=== PATIENT | male | born 1950 | race Caucasian/White ===

== ENCOUNTER → 2017-02-24 | Outpatient (CLI) | payer OTHER, MEDICARE ==
[~2017-02-24] VITALS: Ht 180.3 cm; Wt 104.0 kg
[~2017-02-24] MED LIST: ALBUAER INH; ASPI81TA28 PO; ATOR-26 PO; DVN/160 PO; ESOM20CA PO; HYDR12.55 PO; LOSA100T2 PO; METF1TAB85 PO; METO25TA56 PO; MONT1TAB3 PO; MULTTAB58 PO; NITR0.4S UT; OMEGCAP2 PO; SYMIN160 INH; [UNRECOGNIZED DRUG - CODE] PO
[2017-02-24 16:05] VITALS: BP 135/81; PULSE 89; Ht 180.3 cm; Wt 104.0 kg
== END | disposition home or self-care (01) ==
LOC: C.NEUR 13:10
PROVIDERS: ATTEND Physician Assistant
DX: G47.33 Obstructive sleep apnea (adult) (pediatric) (principal)

== ENCOUNTER → 2017-03-21 | Day surgery (SDC) | payer OTHER, MEDICARE ==
[~2017-03-21] VITALS: Ht 180.3 cm; Wt 104.4 kg
[~2017-03-21] MED LIST changes: +ACETAMINOPHEN 325 MG TAB PO PRN; +BACITRACIN OINT 0.9 GM PKT ONE; +FENTANYL CITRATE INJ 50 MCG/1 ML 2 ML VIAL ONE; +LIDOCAINE HCL 1% 20 ML VIAL ONE; +MIDAZOLAM HCL 1 MG/ML 2ML VIAL ONE
[2017-03-21 12:29] VITALS: BP 117/73; PULSE 67; TEMP 36.9; O2SAT 95; Ht 180.3 cm; Wt 104.4 kg
--- NOTE | 2017-03-21 13:35 | History & Physical Bridge Note ---
H&P Re-Evaluation Bridge Note: I have examined the patient, reviewed the History & Physical and in the interval since the performance of the History & Physical I have noted the following changes of clinical significance: No changes noted. I reviewed the indications, procedure, risks and alternatives with him and his and they understand and he agrees to proceed.
--- NOTE | 2017-03-21 14:11 | Cardiology Procedure Brief Nt ---
Preliminary Cardiology Note Procedure Date March 21, 2017. Pre-Procedure Diagnosis Loop recorder end of service Post-Procedure Diagnosis same Procedure(s) Performed Loop recorder explantation Project Manager [employer] Dr. Morris Prosthetic Dentist(s) none Estimated Blood Loss 5 cc Preliminary Findings Successful explantation Recommendations Monitor briefly and discharge Specimens Old loop recorder, return to [employer] Anesthesia local without sedation Complication(s) None Disposition MTU
[2017-03-21 14:20] VITALS: BP 124/74; PULSE 69; TEMP 36.5; O2SAT 96
--- NOTE | 2017-03-21 14:44 | Discharge Instructions ---
Discharge Instructions Date of Service March 21, 2017. Admission Loop end of service Discharge Discharge Diagnosis / Problem: Loop recorder explantation Discharge Goals Goal(s): Therapeutic intervention Activity Recommendations Activity Limitations: resume your previous activity . Instructions / Follow-Up Instructions / Follow-Up ACTIVITY RECOMMENDATIONS: * Do not raise affected arm over head for 2 weeks. SPECIAL CARE INSTRUCTIONS: * If bleeding occurs, apply direct pressure to area for 5 minutes. * Call your doctor if you have severe pain, fever, drainage or bleeding at site. * Keep dressing on and dry. * Keep any scheduled doctor's appointment. FOLLOW UP VISIT: Dr. Morris Monday03/22/2017 10:00 AM Current Hospital Diet Patient's current hospital diet: Discharge Diet Recommended Diet: AHA Diet (Heart Healthy) Pending Studies Studies pending at discharge: no Medical Emergencies . Who to Call and When: Medical Emergencies: If at any time you feel your situation is an emergency, please call 911 immediately. . Non-Emergent Contact Non-Emergency issues call your: Primary Care Provider . . "Provider Documentation" section prepared by James Morris. . VTE Core Measure Inpt VTE Proph given/why not?: Treatment not indicated
[2017-03-21 14:50] VITALS: BP 136/82; PULSE 65; O2SAT 95
--- NOTE | 2017-04-13 16:08 | OPERATIVE REPORT ---
DATE OF OPERATION: 03/21/2017 AMBULATORY OPERATIVE NOTE PREOPERATIVE DIAGNOSIS: Loop recorder end of service. POSTOPERATIVE DIAGNOSIS: Same. PROCEDURE: Loop recorder explantation. SURGEON: James Morris MD ANESTHESIA: Local without sedation. HISTORY: This is a 67-year-old male who has a history of syncope, for which he had a loop recorder implanted. A number of episodes of syncope have been identified and no arrhythmia was identified. It therefore appears that his syncope is not due to an arrhythmia. His loop recorder was left in place until it reached end of service and he is now brought in for device removal. Since he does not seem to have a clinically significant arrhythmia, no new device will be implanted. DESCRIPTION OF PROCEDURE: After obtaining informed consent for the procedure, he was brought to the laboratory on the afternoon of 03/21/2017 being n.p.o. after midnight. He was identified in the laboratory, prepped and draped in standard sterile manner for a left-sided loop recorder explantation. Left precordial loop recorder implant site was anesthetized with 1% lidocaine local anesthetic, a 2-cm incision was made through the old implant site and the loop recorder was explanted. The incision was closed with a subcutaneous closure of 3-0 Vicryl followed by a running subcuticular skin closure of 4-0 Vicryl. Bacitracin ointment was placed on incision and a pressure dressing applied. The patient tolerated the procedure well, there were no complications and estimated blood loss was 5 mL. The patient will be observed briefly and then discharged. [facility]ITAL[facility] David
== END | disposition home or self-care (01) ==
LOC: C.ACU 11:16
PROVIDERS: ATTEND Internal Medicine Cardiovascular Disease
DX: Z45.89 Encounter for adjustment and management of other implanted devices (principal); R55 Syncope and collapse; I25.10 Atherosclerotic heart disease of native coronary artery without angina pectoris; E11.42 Type 2 diabetes mellitus with diabetic polyneuropathy; K21.9 Gastro-esophageal reflux disease without esophagitis; E78.5 Hyperlipidemia, unspecified; I10 Essential (primary) hypertension; G47.33 Obstructive sleep apnea (adult) (pediatric); Z87.09 Personal history of other diseases of the respiratory system; Z95.1 Presence of aortocoronary bypass graft; Z80.0 Family history of malignant neoplasm of digestive organs; Z79.82 Long term (current) use of aspirin; Z79.899 Other long term (current) drug therapy

== ENCOUNTER → 2017-05-08 | Outpatient (CLI) | payer OTHER, MEDICARE ==
[~2017-05-08] MED LIST changes: -ACETAMINOPHEN 325 MG TAB PO PRN; -BACITRACIN OINT 0.9 GM PKT ONE; -DVN/160 PO; -ESOM20CA PO; -FENTANYL CITRATE INJ 50 MCG/1 ML 2 ML VIAL ONE; -HYDR12.55 PO; -LIDOCAINE HCL 1% 20 ML VIAL ONE; -MIDAZOLAM HCL 1 MG/ML 2ML VIAL ONE; -MONT1TAB3 PO; -MULTTAB58 PO; -OMEGCAP2 PO; -[UNRECOGNIZED DRUG - CODE] PO
--- NOTE | 2017-05-15 12:44 | EEG Procedure Note ---
EEG Procedure Note Date of Service May 08, 2017. Start / End Times Start Time: 05/08/2017 at 1:50 PM End Time: 05/09/2017 at 12:18 PM Referring Physician Neymar Bowser History This is a 67-year-old male with episodes of altered awareness and syncope in relationship to coughing. Ambulatory EEG for spell capture and further evaluation of possible seizure etiology. Home Medication List Scheduled Aspirin (Aspirin Ec), 81 MG PO DAILY Atorvastatin (Lipitor), 80 MG PO DAILY Budesonide/Formoterol Fumarate (Symbicort 160/4.5 Inhaler), 2 PUFFS INH BID Losartan Potassium & Hydrochlo (Hyzaar), 1 TAB PO DAILY Metformin Hcl (Metformin Hcl Er), 1 TAB PO BID Metoprolol Tartrate (Lopressor) (Lopressor), 12.5 MG PO BID Nitroglycerin (Nitrostat), 0.4 MG UT PRN Scheduled PRN Albuterol (Proventil Hfa), 2 PUFFS INH Description This is a 21 electrode EEG with a single channel dedicated to limited EKG. The electrodes were placed in accordance with the International 10-20 system. The recording was of good quality. There was T6 disconnection electrode artifact after 11 AM on May 09. At the start of the recording the patient was in an awake state. Background was well organized and composed of symmetric mixed alpha and beta frequencies. There was a symmetric well-formed moderate amplitude 9-10 Hz posterior dominant rhythm that was reactive to eye opening and closure. Sleep was indicated by symmetric sleep spindles and slow wave sleep. Patient journal was returned and reviewed. There was 2 clinical events of reported coughing on May 09 at 8:20 AM and 11: 55 AM. EEG was carefully reviewed before and after reported time. There was intermittent movement artifact, but otherwise no change to normal awake EEG background. There was no electrographic seizures or epileptiform discharges. Interpretation This is a normal 24hr ambulatory EEG. There was no electrographic seizures or epileptiform discharges. Clinical Correlation A normal EEG does not rule out epilepsy if there is a strong clinical suspicion or for event types not captured. 2 clinical events of coughing did not have any EEG correlation.
== END | disposition home or self-care (01) ==
LOC: C.NEUR 13:20
PROVIDERS: ATTEND Psychiatry & Neurology Neurology
DX: G62.9 Polyneuropathy, unspecified (principal); R55 Syncope and collapse

== ENCOUNTER → 2018-02-22 | Outpatient (CLI) | payer OTHER, MEDICARE ==
[~2018-02-22] MED LIST changes: +GADAVIST IV PRN
--- NOTE | 2018-02-22 14:30 | DIAGNOSTIC IMAGING REPORT ---
MRI OF THE BRAIN COMBO CLINICAL HISTORY: Strokelike symptoms. COMPARISON STUDY: MRI of the brain dated 03/17/2014. TECHNIQUE: MRI of the brain was performed utilizing various T1 and T2-weighted sequences in the axial, sagittal, and coronal planes. Contrast-enhanced sequences were acquired following the administration of 10.2 cc of Gadavist. The examination is performed using the seizure protocol. FINDINGS: Brain parenchyma: There is minimal subcortical and periventricular microangiopathic disease. There is no hemorrhage or mass effect. There is no restricted diffusion to suggest acute ischemia. No enhancing mass lesion is identified on the postcontrast images. Damico-white matter differentiation is preserved. No extra-axial fluid collection is seen. The cerebellar tonsils are normal in configuration. Ventricles, sulci, and cisterns: Normal in configuration. Pituitary and sella: Unremarkable. Intracranial vasculature: Normal flow voids are maintained at the skull base. Orbits: The bony orbits are grossly intact. Orbital contents are normal in appearance. Sinuses and mastoids: There is trace mucosal thickening in the maxillary antra as well as trace air-fluid levels. The remaining paranasal sinuses are clear. The mastoid air cells are well pneumatized. Calvarium: Unremarkable. Cervical cord: Partially visualized cervical spinal cord is normal in morphology and signal intensity. IMPRESSION: No acute intracranial abnormality. Electronically signed by: Jeremiah Patterson M.D. 02/22/2018 2:29 PM Dictated Date/Time: 02/22/2018 2:24 PM
== END | disposition home or self-care (01) ==
LOC: C.MRIBC 13:22
PROVIDERS: ATTEND Psychiatry & Neurology Neurology
DX: R29.90 Unspecified symptoms and signs involving the nervous system (principal)

== ENCOUNTER 2022-03-01 11:41 | Inpatient (IN) ==
[2022-03-01] MEDS ORDERED: SODIUM CHLORIDE 0.9% 500 ML IV ONE (12:26)
[2022-03-01 12:43] LABS: Basophils # (auto) 0.02 K/uL (0-0.2); Basophils % (auto) 0.2 %; Eosinophils # (auto) 0.06 K/uL (0-0.5); Eosinophils % (auto) 0.6 %; Hematocrit (blood only) 41.6 % (42-52); Hemoglobin 13.9 g/dL (14.0-18.0); Immature Granulocytes # (auto) 0.03 K/uL (0.00-0.02); Immature Granulocytes % (auto) 0.3 %; Lymphocytes # (auto) 1.87 K/uL (1.2-3.4); Lymphocytes % (auto) 19.8 %; Mean Corpuscular Hemoglobin 29.3 pg (25-34); Mean Corpuscular Hgb Conc 33.4 g/dL (32-36); Mean Corpuscular Volume 87.8 fL (80-100); Mean Platelet Volume 10.2 fL (7.4-10.4); Monocytes # (auto) 0.99 K/uL (0.11-0.59); Monocytes % (auto) 10.5 %; Neutrophils # (auto) 6.47 K/uL (1.4-6.5); Neutrophils % (auto) 68.6 %; Platelet Count 236 K/uL (130-400); RDW Coefficient of Variation 15.2 % (11.5-14.5); RDW Standard Deviation 48.6 fL (36.4-46.3); Red Blood Count 4.74 M/uL (4.7-6.1); White Blood Count 9.44 K/uL (4.8-10.8)
--- NOTE | 2022-03-01 13:05 | XRay Report ---
XR chest 1V portable HISTORY: 71 years-old Male Chest Pain . Acute atypical chest pain COMPARISON: None TECHNIQUE: Portable AP view of the chest FINDINGS: The cardiac silhouette is enlarged. Mitral annular calcifications. Prior median sternotomy with surgi kaur clips suggestive of CABG. Several of the sternotomy wires are fractured and malaligned. No pneumo thorax. Trace pleural effusions with mild left basilar predominant opacities. Pulmonary vascular wild estion. Degenerative changes of the shoulders and spine. Left subclavian [id number] catheter dista l tip projects over the expected location of the mid SVC. IMPRESSION: 1. Cardiomegaly with pulmonary vascular congestion. 2. Trace pleural effusions with mild left lung base opacities suggestive of atelectasis versus pneumo nitis. 3. Prior median sternotomy. Several sternotomy wires are fractured and malaligned. Chronicity is unkn own without comparison. Correlate clinically to exclude sternal dehiscence. ACT 112: Negative or not required by law. The above report was generated using voice recognition software. It may contain grammatical, syntax o r spelling errors. Electronically signed by: Julio Lim M.D. 03/01/2022 1:04 PM
[2022-03-01 13:07] LABS: Albumin Level 3.9 gm/dl (3.4-5.0); BUN Creatinine Ratio 25.5 (10-20); Bilirubin,Total 0.3 mg/dl (0.2-1.0); Calcium 9.3 mg/dl (8.5-10.1); Creatinine Clr Calc Pharmacy 78.7 ml/min; Est GFR (African American) 80.9 ml/min; Est GFR (Non-African American) 69.8 ml/min; Magnesium 1.8 mg/dl (1.7-2.4); Phosphorus 2.9 mg/dl (2.5-4.9); Potassium 4.1 mmol/L (3.5-5.1); Total Protein 7.9 gm/dl (6.0-8.3)
[2022-03-01 13:14] LABS: Troponin I High Sensitivity 71.7 pg/ml (0-20)
[2022-03-01] MEDS ORDERED: ACETAMINOPHEN 1,000 MG/100 ML VIAL IV STA (13:33)
[2022-03-01] MEDS ORDERED: ASPIRIN CHEW 324 MG PO STA (16:46)
--- NOTE | 2022-03-01 17:24 | History & Physical Report ---
Date of Service March 01, 2022 Assessment & Plan (1) Unstable angina: Plan: I am concerned that his symptoms in the last 24 hours are indeed due to cardiac ischemia. His symptomatology is unlikely to be from side effects from IVIG. At minimum his history is concerning for unstable angina - I cannot rule out early NSTEMI. He is 20+ years out from his CABG and had a positive nuclear stress test on 09/14/2021 per records. This showed a small, mild area of ischemia involving the base to mid inferior/inferoseptal territory. EF was 60%. Normal wall motion. Fortunately all symptoms have resolved by the time of my admission assessment, he is hemodynamically stable, and EKG does not show acute changes. Plan * admit to telemetry * consult [facility], Dr Archibald; I discussed Mr Willams's care with Dr Archibald and we will heparinize tonight and keep NPO after MN for potential heart cath in am * heparin drip, low-dose * continue asa * cont statin; check lipids in am * trend HS troponins * continue metoprolol * continue losartan * continue imdur * EKG in am and prn * Echocardiogram in am (2) Elevated troponin: Plan: see #1 above trend the troponins NPO after MN tonight for potential heart cath in am EKG in am (3) CAD, multiple vessel: Plan: 4-vessel CABG in 1997 - [facility]. had positive/abnl nuclear stress test in 08/2021 as above. cont asa, beta reese, statin, imdur, nitro SL prn, ARB. lipids in am. (4) Night sweats: Plan: several months in duration. no weight loss. will obtain 2 sets of blood cultures with 1 set from port. check sed rate/crp. repeat his cxr in am due to infiltrates in the left lung. if nothing is revealing while here he needs close outpatient f/u with his PCP. last TSH in 2019 was wnl. (5) Insomnia: Plan: consider dedicated medication for this. his sleep is very poor, often obtaining <5 hours each night. he attributes some of the insomnia to the night-sweats. (6) CIDP (chronic inflammatory demyelinating polyneuropathy): Plan: follows with Neurology at [facility] in [place]. IVIG q3 weeks for such. IVIG has been utilized for about 2 years. last infusion - 02/28/22. (7) Hyperlipidemia: Plan: check lipids in am. check a1c and TSH. statin. (8) Hypertension: Plan: cont ARB, metoprolol, imdur, HCTZ. adjust meds as needed. (9) Obstructive sleep apnea: Plan: need to inquire if using CPAP or BIPAP at home. if untreated this is likely contributing to chronic insomnia. (10) PAD (peripheral artery disease): Plan: arterial duplex studies with mild-moderate PAD of legs but normal ABIs. night-time leg cramps, however, unlikely to be from PAD. he denies claudication of legs with activity. (11) Seizure-like activity: Plan: history of focal & generalized seizures in the past. cont lamictal. follows with neurology in [place]. (12) Type 2 diabetes mellitus: Plan: check a1c in am. BSGs ac/hs. Novolog sliding scale. add basal insulin as needed. hold metformin. (13) Abnormal CXR: Plan: ?left sided infiltrates on pCXR today. repeat a 2-view cxr in am. if cxr continues to be abnormal consider chest CT in light of night-sweats, etc. (14) DVT prophylaxis: Plan: heparin drip low-dose Plan: extensively updated at bedside today w/ plan of care History of Present Illness Chief Complaint: L shoulder pain, dyspnea, diaphoresis Primary Care Provider: Arsh Gupta 71yo male with CAD s/p 4-vessel CABG in [facility] in 1997, T2DM, chronic inflammatory demyelinating polyneuropathy (CIPD), PAD, HTN, and hyperlipidemia who presents from home with his due to 2 episodes of feeling very poorly in the last 24 hours. Patient states that he receives IVIG every 3 weeks in [place] for his CIDP (managed by a neurologist at [facility]) and typically has leg cramps during the infusion. Following the infusion he sometimes has facial flushing, insomnia, and a generalized unwellness. However, last evening he had symptoms very atypical for his IVIG. Specifically, for at least 2 to 2.5 hours in the early hours of this AM, he had diaphoresis, shortness of breath, left shoulder pain, and nausea. The symptoms ultimately improved enough that he did fall asleep for several hours. Upon awakening this am he had another episode of left shoulder pain, dyspnea, and diaphoresis. This 2nd episode lasted for about 3-4 hours. He never had chest pain with either episode. Patient distinctly remembers that in the time period leading up to his CABG he had had left arm pain. The pain in the left shoulder last pm was somewhat similar to the left arm pains he had in the late pre-CABG. He wanted to blame much of the symptoms last night to his IVIG infusion but he readily admits that last night's symptoms were not typical. In addition, he complaints of significant fatigue for weeks to months. Several times during the visit he complained of drenching night-sweats and flushing - present for months. The sweats prevent him from sleeping well. Denies any change in appetite. Denies any weight loss. Denies chronic fevers or rigors. Pt states he had an A-port placed about 6 weeks ago in [place]. Allergies Allergy/AdvReac Type Severity Reaction Status Date / Time adhesive Allergy Intermediate red, Verified 03/01/22 12:43 inflammed No Known Drug Allergies Allergy NKDA Verified 03/01/22 12:43 Home Medications Medication Instructions Recorded Confirmed Type aspirin 81 mg tablet 81 mg PO QPM tab 07/24/19 03/01/22 History metformin 500 mg tablet,extended 500 mg PO BID #60 tab 07/24/19 03/01/22 History release 24 hr nitroglycerin 0.4 mg sublingual 0.4 mg SL Q5M PRN #25 tab 07/24/19 03/01/22 History tablet albuterol sulfate 90 mcg/actuation 1 - 2 puff INHALATION QID PRN g 08/23/21 03/01/22 History aerosol inhaler duloxetine 30 mg capsule,delayed 30 mg PO DAILY 08/23/21 03/01/22 History release magnesium oxide 400 mg PO QPM 08/23/21 03/01/22 History isosorbide mononitrate 30 mg 30 mg PO DAILY #30 tab 09/18/21 03/01/22 Rx tablet,extended release 24 hr cholecalciferol (vitamin D3) 125 125 mcg PO DAILY 10/06/21 03/01/22 History mcg (5,000 unit) capsule losartan 100 mg tablet 100 mg PO DAILY 10/06/21 03/01/22 History metoprolol tartrate 25 mg tablet 12.5 mg PO BID #90 tab 02/07/22 03/01/22 Rx atorvastatin 80 mg tablet 80 mg PO QPM #90 tab 02/25/22 03/01/22 Rx Ivig 1 dose IV .Q3WKS 03/01/22 03/01/22 History Potassium Otc 1 tab PO DAILY 03/01/22 03/01/22 History folic acid-vit B6-vit B12 2.5 1 tab PO DAILY 03/01/22 03/01/22 History mg-25 mg-2 mg tablet (Folbic) hydrochlorothiazide 25 mg tablet 12.5 mg PO DAILY 03/01/22 03/01/22 History lamotrigine 200 mg tablet 200 mg PO BID 03/01/22 03/01/22 History lamotrigine 25 mg tablet 25 mg PO BID 03/01/22 03/01/22 History vitamin B complex 1 tab PO DAILY 03/01/22 03/01/22 History Past Med/Surg History Medical History CAD, multiple vessel CIDP (chronic inflammatory demyelinating polyneuropathy) Hyperlipidemia Hypertension Obstructive sleep apnea Peripheral neuropathy Port-A-Cath in place Seizure-like activity SOB (shortness of breath) Syncope, tussive Type 2 diabetes mellitus Surgical History S/P CABG (coronary artery bypass graft) 1997- [place] Family History Family/Other Family history of CABG Coronary heart disease Father Colorectal cancer Grandfather (Maternal) Coronary heart disease Grandfather (Paternal) Colorectal cancer Uncle Colorectal cancer Uncle Colorectal cancer Social History Smoking Status: Never smoker Do You Dip or Chew Tobacco: No; Hx Alcohol Use: Yes Alcohol type: beer Alcohol Intake Frequency: 4 or More x per/Week Alcohol Intake Frequency Comment: 1 beer nightly Hx Substance Use: No Preferred Language: Mohawk Communication Ability: Effective Examination Grader Required: No Beliefs That Will Affect Care: Confucianism Confucianism Beliefs: mormon marital status: Current Living Situation: Spouse Current Living Situation Comment: Luis current occupational status: retired current occupation: [employer] How many Children do You have: 3 Other Information That Helps Us Care for You: No Feels Safe at Home: Yes Safety Concerns: Feels Safe At This Time Assistive Devices: Glasses and Hearing Aid - Bilateral Assistive Devices Comment: hearing aids at home Review of Systems Review of Systems: gen - no fevers, no chills; chronic fatigue, chronic night- sweats; no weight loss eyes - no change in vision HENT - no sore throat or nasal congestion; no dysphagia CV - no chest pain or palpitations pulm - no cough, no recent dyspnea on exertion w/ activities; dyspnea with both episodes overnight, however GI - no vomiting, no pain, no diarrhea, no blood in stool - no dysuria musculo - chronic muscle cramps - drinks tonic water for us[facility] skin - no rash neuro - chronic balance issues, chronic numbness of limbs, no headache endo - BSGs <200; no hypoglycemia lymph - denies lumps/masses in neck, groin, etc psych - some anxiety, chronic insomnia Physical Exam Physical Exam: gen - pleasant, NAD, a/o x 3 eyes - PERRL HENT - TMs clear b/l, nose clear, mouth with MMM neck - no JVD, supple, no thyroidmegaly heart - RRR, s1 s2, no murmur lungs - CTA b/l abd - soft NT ND BS+, no HSM ext - trace edema b/l, pulses 2+ b/l neuro - strength 5/5 x 4 exts, DTRs 2+ b/l skin - no rash psych - a/o x 3 musculo - no joint effusions lymph - no cervical lymph nodes b/l Results & Data Results & Data ([facility]) Vital Signs (Past 12 Hours) Vital Signs Temp Pulse Pulse Resp BP BP Pulse Ox 03/01/22 17:01 70 18 143/83 H 98 03/01/22 16:09 74 16 147/75 H 93 03/01/22 12:25 96 03/01/22 12:21 96 03/01/22 12:20 68 18 147/75 H 96 03/01/22 11:43 36.8 C 74 18 156/73 H 96 Laboratory Results Laboratory Results - last 24 hr 03/01/22 03/01/22 03/01/22 12:20 12:20 15:15 WBC 9.44 RBC 4.74 Hgb 13.9 L Hct 41.6 L MCV 87.8 MCH 29.3 MCHC 33.4 RDW Std Deviation 48.6 H RDW Coeff of Beny 15.2 H Plt Count 236 MPV 10.2 Immature Gran % (Auto) 0.3 Neut % (Auto) 68.6 Lymph % (Auto) 19.8 Harding % (Auto) 10.5 Eos % (Auto) 0.6 Baso % (Auto) 0.2 Neut # (Auto) 6.47 Lymph # (Auto) 1.87 Harding # (Auto) 0.99 H Eos # (Auto) 0.06 Baso # (Auto) 0.02 Immature Gran # (Auto) 0.03 H Sodium 135 L Potassium 4.1 Chloride 102 Carbon Dioxide 26 Anion Gap 7 BUN 27 H Creatinine 1.06 Est Cr Clr Drug Dosing 78.7 Est GFR ( Amer) 80.9 Est GFR (Non-Af Amer) 69.8 BUN/Creatinine Ratio 25.5 H Glucose 193 H Calcium 9.3 Phosphorus 2.9 Magnesium 1.8 Total Bilirubin 0.3 AST 20 ALT 35 Alkaline Phosphatase 46 Troponin I High Sens 71.7 H* 344.5 H* D Total Protein 7.9 Albumin 3.9 Globulin 4.0 Albumin/Globulin Ratio 1.0 Lipase 22 SARS-CoV-2, RNA, NAAT 03/01/22 17:36 WBC RBC Hgb Hct MCV MCH MCHC RDW Std Deviation RDW Coeff of Beny Plt Count MPV Immature Gran % (Auto) Neut % (Auto) Lymph % (Auto) Harding % (Auto) Eos % (Auto) Baso % (Auto) Neut # (Auto) Lymph # (Auto) Harding # (Auto) Eos # (Auto) Baso # (Auto) Immature Gran # (Auto) Sodium Potassium Chloride Carbon Dioxide Anion Gap BUN Creatinine Est Cr Clr Drug Dosing Est GFR ( Amer) Est GFR (Non-Af Amer) BUN/Creatinine Ratio Glucose Calcium Phosphorus Magnesium Total Bilirubin AST ALT Alkaline Phosphatase Troponin I High Sens Total Protein Albumin Globulin Albumin/Globulin Ratio Lipase SARS-CoV-2, RNA, NAAT NEGATIVE Diagnostic Findings Chest X-Ray 03/01/22 12:25 XR chest 1V portable HISTORY: 71 years-old Male Chest Pain . Acute atypical chest pain COMPARISON: None TECHNIQUE: Portable AP view of the chest FINDINGS: The cardiac silhouette is enlarged. Mitral annular calcifications. Prior median sternotomy with surgical clips suggestive of CABG. Several of the sternotomy wires are fractured and malaligned. No pneumothorax. Trace pleural effusions with mild left basilar predominant opacities. Pulmonary vascular congestion. Degenerative changes of the shoulders and spine. Left subclavian [id number] catheter distal tip projects over the expected location of the mid SVC. IMPRESSION: 1. Cardiomegaly with pulmonary vascular congestion. 2. Trace pleural effusions with mild left lung base opacities suggestive of atelectasis versus pneumonitis. 3. Prior median sternotomy. Several sternotomy wires are fractured and malaligned. Chronicity is unknown without comparison. Correlate clinically to exclude sternal dehiscence. ACT 112: Negative or not required by law. The above report was generated using voice recognition software. It may contain grammatical, syntax or spelling errors. Electronically signed by: Julio Lim M.D. 03/01/2022 1:04 PM EKG - NSR, no ST changes, anterior Q waves; Q wave lead III Code Status & VTE Plan Code Status DNR/DNI PG Care Time/CCT Total # of Minutes Spent Total Time Spent with Patient: Total time spent is greater than 50% in coordination of care (as documented) at patient's floor/unit and/or counseling patient: Coding Level of Care Code INT OBSERVATION CARE 70M LVL 3 Diagnoses Unstable angina I20.0 Elevated troponin R77.8 CAD, multiple vessel I25.10 Night sweats R61 Insomnia G47.00 CIDP (chronic inflammatory demyelinating polyneuropathy) G61.81 Hyperlipidemia E78.5 Hypertension I10 Obstructive sleep apnea G47.33 PAD (peripheral artery disease) I73.9 Seizure-like activity R56.9 Type 2 diabetes mellitus E11.9 DVT prophylaxis Z29.9 Abnormal CXR R93.89
[2022-03-01] MEDS ORDERED: Heparin IV Adult Wt-Based Low-Dose *NO* Bolus Protocol IV ONE (18:18)
--- NOTE | 2022-03-01 18:38 | Emergency Department Note ---
Impression & Plan Elevated troponin, CAD, multiple vessel, CIDP (chronic inflammatory demyelinating polyneuropathy) ED Provider Note NAME: JAZMIN Linton YOUNG AGE: 71 SEX: M ARRIVES VIA: Walk-In INFORMANT: Patient ED PROVIDER(S): Ronni Baird MD CHIEF COMPLAINT: shoulder pain PLAN: Disposition: Admit MEDICAL DECISION MAKING: The patient is a pleasant 71-year-old gentleman with a past medical history of CAD/CABG, PAD, hypertension, hyperlipidemia, CIDP for which he receives monthly IVIG infusions who presents to the emergency department accompanied by his for evaluation of generalized body aches, elevated blood pressure, sob, and left shoulder pain that he reports evolved since last night. He denies having chest pain per se. He reports the body aches and joint pains is something he typically feels after his infusions but he grew concerned when he was having left shoulder pain today given his cardiac history. He reports he did have a abnormal stress test in fall. He reports that prior to his infusion he reports he has increased his physical activity and denies any pattern of exertional chest pain or shortness of breath. He denies any fevers, chills, cough, congestion, GI or symptoms. The patient is no acute distress, afebrile with blood pressure 140-150s/80s and vital signs otherwise stable. He appears euvolemic to dry. EKG does not demonstrate overt acute ischemia and is similar to prior. Chest x- ray with mild vascular congestion and likely atelectasis. WBC and platelets wnl. H/H 13.9/41.6 without recent for comparison. Chemistry without metabolic acidosis. LFTs unremarkable. Lipase is not elevated. Covid-19 RNA, NAAT negative. Initial high-sensitivity troponin was elevated to 71 with delta 3-hour troponin rising to 344. However in the interval the patient continued to feel well and reported the subtle ache in his left shoulder had resolved after IV Tylenol. Case was discussed with [facility], Dr. Archibald, the patient follows with and agrees that the patient's description of symptoms do not overtly suggest a cardiac etiology however given his rising high-sensitivity troponin it is reason able to admit for further monitoring and trending of his troponin. The patient and at the bedside are in agreement with the plan. Full-dose aspirin given. Case was d/w Dr. Nolen, [facility] [place] who will evaluate the patient for admission. Triage Nursing notes reviewed and agree them. Prior medical records reviewed Vital Signs: reviewed and remarkable for no significant abnormalities Differential diagnosis: Infection, dehydration, metabolic abnormality, hypo/hyperglycemia, electrolyte disturbance, anemia, hypoxia, cardiac sources, intracerebral event, toxicologic, neurologic, as well as other pathologies. ER treatment provided: See below. Diagnostics interpreted by me: ECG: Sinus rhythm with first-degree AV block with PACs, 74 bpm, no ectopy, no overt ST elevation or depression, QTC 457, QRS 102. Cardiac Monitoring: An order for continuous cardiac monitoring was placed and demonstrated sinus rhythm with first-degree AV block with PACs, 74 bpm, no ectopy. Laboratory studies: See below Imaging studies: See below Consultation(s): Dr. Archibald, [place] cardiology Dr. Nolen, [facility] [place]. HPI: The patient is a pleasant 71-year-old gentleman with a past medical history of CAD/CABG, PAD, hypertension, hyperlipidemia, CIDP for which he receives monthly IVIG infusions who presents to the emergency department accompanied by his for evaluation of generalized body aches, elevated blood pressure, sob, and left shoulder pain that he reports evolved since last night. He denies having chest pain per se. He reports the body aches and joint pains is something he typically feels after his infusions but he grew concerned when he was having left shoulder pain today given his cardiac history. He reports he did have a abnormal stress test in fall. He reports that prior to his infusion he reports he has increased his physical activity and denies any pattern of exertional chest pain or shortness of breath. He denies any fevers, chills, cough, congestion, GI or symptoms. ROS: See above HPI for pertinent positives & negatives. A total of 10 systems reviewed and were otherwise negative. VITALS:See Below PHYSICAL EXAMINATION: GENERAL: Awake, alert, well-appearing, in no distress HENT: Normocephalic, atraumatic. Oropharynx with dry mucous membranes and otherwise unremarkable. EYES: Normal conjunctiva. Sclera non-icteric. NECK: Supple. No nuchal rigidity. FROM. No JVD. RESPIRATORY: Clear to auscultation. CARDIAC: Regular rate, normal rhythm. Extremities warm and well perfused. Pulses equal. ABDOMEN: Soft, non-distended. No tenderness to palpation. No rebound or guarding. No masses. RECTAL: Deferred. MUSCULOSKELETAL: Chest examination reveals no tenderness. The back is symmetrical on inspection without obvious abnormality. There is no CVA tenderness to palpation. No joint edema. LOWER EXTREMITIES: Calves are equal size bilaterally and non-tender. No edema. No discoloration. NEURO: Normal sensorium. No sensory or motor deficits noted. SKIN: No rash or jaundice noted. ED COURSE: Critical Care: I have personally spent greater than 35 minutes of critical care time in the direct management of this patient. This includes bedside care, interpretation of diagnostic studies, and testing, discussion with consultants, patient, and family members, and other required patient management activities. This 35 minutes is in excess of all separately billable procedures. 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) Hyperlipidemia Hypertension Obstructive sleep apnea Peripheral neuropathy Port-A-Cath in place Seizure-like activity SOB (shortness of breath) Syncope, tussive Type 2 diabetes mellitus Surgical History S/P CABG (coronary artery bypass graft) [address], [place] Family History Family/Other Family history of CABG Coronary heart disease Father Colorectal cancer Grandfather (Maternal) Coronary heart disease Grandfather (Paternal) Colorectal cancer Uncle Colorectal cancer Uncle Colorectal cancer Social History Smoking Status: Never smoker Do You Dip or Chew Tobacco: No; Hx Alcohol Use: Yes Alcohol type: beer Alcohol Intake Frequency: 4 or More x per/Week Alcohol Intake Frequency Comment: 1 beer nightly Hx Substance Use: No Preferred Language: Zambian Communication Ability: Effective Cassandra Developer Required: No Beliefs That Will Affect Care: Lutheran Lutheran Beliefs: mormonism marital status: Current Living Situation: Spouse Current Living Situation Comment: Luis current occupational status: retired current occupation: [employer] How many Children do You have: 3 Other Information That Helps Us Care for You: No Feels Safe at Home: Yes Safety Concerns: Feels Safe At This Time Assistive Devices: Glasses and Hearing Aid - Bilateral Assistive Devices Comment: hearing aids at home Allergies Allergies Allergy/AdvReac Type Severity Reaction Status Date / Time adhesive Allergy Intermediate red, Verified 03/01/22 12:43 inflammed No Known Drug Allergies Allergy NKDA Verified 03/01/22 12:43 Home Meds Home Medications Medication Instructions Recorded Confirmed aspirin 81 mg tablet 81 mg PO QPM tab 07/24/19 03/01/22 metformin 500 mg tablet,extended 500 mg PO BID #60 tab 07/24/19 03/01/22 release 24 hr nitroglycerin 0.4 mg sublingual 0.4 mg SL Q5M PRN #25 tab 07/24/19 03/01/22 tablet albuterol sulfate 90 mcg/actuation 1 - 2 puff INHALATION QID PRN g 08/23/21 03/01/22 aerosol inhaler duloxetine 30 mg capsule,delayed 30 mg PO DAILY 08/23/21 03/01/22 release magnesium oxide 400 mg PO QPM 08/23/21 03/01/22 cholecalciferol (vitamin D3) 125 125 mcg PO DAILY 10/06/21 03/01/22 mcg (5,000 unit) capsule losartan 100 mg tablet 100 mg PO DAILY 10/06/21 03/01/22 Ivig 1 dose IV .Q3WKS 03/01/22 03/01/22 Potassium Otc 1 tab PO DAILY 03/01/22 03/01/22 folic acid-vit B6-vit B12 2.5 1 tab PO DAILY 03/01/22 03/01/22 mg-25 mg-2 mg tablet (Folbic) hydrochlorothiazide 25 mg tablet 12.5 mg PO DAILY 03/01/22 03/01/22 lamotrigine 200 mg tablet 200 mg PO BID 03/01/22 03/01/22 lamotrigine 25 mg tablet 25 mg PO BID 03/01/22 03/01/22 vitamin B complex 1 tab PO DAILY 03/01/22 03/01/22 Previous Rx's Medication Instructions Recorded isosorbide mononitrate 30 mg 30 mg PO DAILY #30 tab 09/18/21 tablet,extended release 24 hr metoprolol tartrate 25 mg tablet 12.5 mg PO BID #90 tab 02/07/22 atorvastatin 80 mg tablet 80 mg PO QPM #90 tab 02/25/22 Results & Data (ED) Vital Signs Vital Signs - 24 hr 03/01/22 11:43 03/01/22 12:20 03/01/22 12:21 Temperature 36.8 C Temperature Source Temporal Artery Scan Pulse Rate 74 Pulse Rate [Apical] 68 Pulse Rhythm [Apical] Respiratory Rate 18 18 Respiratory Depth Blood Pressure 156/73 H Blood Pressure [Left Arm] 147/75 H Blood Pressure Mean 100 Blood Pressure Mean [Left Arm] 99 Pulse Oximetry 96 96 96 Oxygen Delivery Method Room Air Room Air Room Air Sepsis Recent Fever Within 48 Hours No Sepsis New/Unexplained Change in Mental Status No Sepsis Action Taken by Nursing No Action Required 03/01/22 12:25 03/01/22 16:09 03/01/22 17:01 Temperature Temperature Source Pulse Rate Pulse Rate [Apical] 74 70 Pulse Rhythm [Apical] Regular Respiratory Rate 16 18 Respiratory Depth Normal Blood Pressure Blood Pressure [Left Arm] 147/75 H 143/83 H Blood Pressure Mean Blood Pressure Mean [Left Arm] 99 103 Pulse Oximetry 96 93 98 Oxygen Delivery Method Room Air Room Air Room Air Sepsis Recent Fever Within 48 Hours Sepsis New/Unexplained Change in Mental Status Sepsis Action Taken by Nursing Laboratory Data Attestation: I reviewed the patient's lab results. Result diagrams: 03/01/22 12:20 03/01/22 12:20 Lab Results 03/01/22 03/01/22 03/01/22 Range/Units 12:20 12:20 15:15 WBC 9.44 (4.8-10.8) K/uL RBC 4.74 (4.7-6.1) M/uL Hgb 13.9 L (14.0-18.0) g/dL Hct 41.6 L (42-52) % MCV 87.8 (80-100) fL MCH 29.3 (25-34) pg MCHC 33.4 (32-36) g/dL RDW Std Deviation 48.6 H (36.4-46.3) fL RDW Coeff of Beny 15.2 H (11.5-14.5) % Plt Count 236 (130-400) K/uL MPV 10.2 (7.4-10.4) fL Immature Gran % (Auto) 0.3 % Neut % (Auto) 68.6 % Lymph % (Auto) 19.8 % Benton % (Auto) 10.5 % Eos % (Auto) 0.6 % Baso % (Auto) 0.2 % Neut # (Auto) 6.47 (1.4-6.5) K/uL Lymph # (Auto) 1.87 (1.2-3.4) K/uL Benton # (Auto) 0.99 H (0.11-0.59) K/uL Eos # (Auto) 0.06 (0-0.5) K/uL Baso # (Auto) 0.02 (0-0.2) K/uL Immature Gran # (Auto) 0.03 H (0.00-0.02) K/uL Sodium 135 L (136-145) mmol/L Potassium 4.1 (3.5-5.1) mmol/L Chloride 102 (98-107) mmol/L Carbon Dioxide 26 (21-32) mmol/L Anion Gap 7 (3-11) BUN 27 H (6-23) mg/dl Creatinine 1.06 (0.6-1.4) mg/dl Est Cr Clr Drug Dosing 78.7 ml/min Est GFR ( Amer) 80.9 ml/min Est GFR (Non-Af Amer) 69.8 ml/min BUN/Creatinine Ratio 25.5 H (10-20) Glucose 193 H (70-99(Fasting)) mg/dl Calcium 9.3 (8.5-10.1) mg/dl Phosphorus 2.9 (2.5-4.9) mg/dl Magnesium 1.8 (1.7-2.4) mg/dl Total Bilirubin 0.3 (0.2-1.0) mg/dl AST 20 (13-39) U/L ALT 35 (7-52) U/L Alkaline Phosphatase 46 (34-104) U/L Troponin I High Sens 71.7 H* 344.5 H* D (0-20) pg/ml Total Protein 7.9 (6.0-8.3) gm/dl Albumin 3.9 (3.4-5.0) gm/dl Globulin 4.0 (2.5-4.0) gm/dl Albumin/Globulin Ratio 1.0 (0.9-2) Lipase 22 (11-82) U/L SARS-CoV-2, RNA, NAAT (NEGATIVE) 03/01/22 Range/Units 17:36 WBC (4.8-10.8) K/uL RBC (4.7-6.1) M/uL Hgb (14.0-18.0) g/dL Hct (42-52) % MCV (80-100) fL MCH (25-34) pg MCHC (32-36) g/dL RDW Std Deviation (36.4-46.3) fL RDW Coeff of Beny (11.5-14.5) % Plt Count (130-400) K/uL MPV (7.4-10.4) fL Immature Gran % (Auto) % Neut % (Auto) % Lymph % (Auto) % Benton % (Auto) % Eos % (Auto) % Baso % (Auto) % Neut # (Auto) (1.4-6.5) K/uL Lymph # (Auto) (1.2-3.4) K/uL Benton # (Auto) (0.11-0.59) K/uL Eos # (Auto) (0-0.5) K/uL Baso # (Auto) (0-0.2) K/uL Immature Gran # (Auto) (0.00-0.02) K/uL Sodium (136-145) mmol/L Potassium (3.5-5.1) mmol/L Chloride (98-107) mmol/L Carbon Dioxide (21-32) mmol/L Anion Gap (3-11) BUN (6-23) mg/dl Creatinine (0.6-1.4) mg/dl Est Cr Clr Drug Dosing ml/min Est GFR ( Amer) ml/min Est GFR (Non-Af Amer) ml/min BUN/Creatinine Ratio (10-20) Glucose (70-99(Fasting)) mg/dl Calcium (8.5-10.1) mg/dl Phosphorus (2.5-4.9) mg/dl Magnesium (1.7-2.4) mg/dl Total Bilirubin (0.2-1.0) mg/dl AST (13-39) U/L ALT (7-52) U/L Alkaline Phosphatase (34-104) U/L Troponin I High Sens (0-20) pg/ml Total Protein (6.0-8.3) gm/dl Albumin (3.4-5.0) gm/dl Globulin (2.5-4.0) gm/dl Albumin/Globulin Ratio (0.9-2) Lipase (11-82) U/L SARS-CoV-2, RNA, NAAT NEGATIVE (NEGATIVE) Administered Medications Aspirin (Aspirin 81 Mg Ectab) 81 mg PO QPM [facility] Stop: 03/31/22 20:59 Last Admin: 03/01/22 22:23 Dose: 81 mg Documented by: [id number] Atorvastatin Calcium (Atorvastatin 40 Mg Tab) 80 mg PO QPM [place] Stop: 03/31/22 20:59 Last Admin: 03/01/22 22:23 Dose: 80 mg Documented by: [id number] Heparin Sodium/Dextrose (Heparin Sodium/Dextrose) 25,000 units in 500 mls @ 20 mls/hr IV .Q24H [facility]; Protocol Stop: 03/31/22 18:29 Last Admin: 03/01/22 21:40 Dose: 1,000 units/hr, 20 mls/hr Documented by: [id number] Cosigned by: [id number] Insulin Aspart (Insulin Aspart Per Unit) 0 units SC ACHS [facility] Stop: 03/31/22 20:59 Last Admin: 03/01/22 22:45 Dose: 5 units Documented by: [id number] Cosigned by: [id number] Lamotrigine (Lamotrigine 100 Mg Tab) 200 mg PO BID [facility] Stop: 03/31/22 20:59 Last Admin: 03/01/22 22:22 Dose: 200 mg Documented by: [id number] Lamotrigine (Lamotrigine 25 Mg Tab) 25 mg PO BID [facility] Stop: 03/31/22 20:59 Last Admin: 03/01/22 22:22 Dose: 25 mg Documented by: [id number] Magnesium Oxide (Magnesium Oxide 400 Mg Tab) 400 mg PO QPM [facility] Stop: 03/31/22 20:59 Last Admin: 03/01/22 22:22 Dose: 400 mg Documented by: [id number] Metoprolol Tartrate (Metoprolol Tartrate 25 Mg Tab) 12.5 mg PO BID [facility] Stop: 03/31/22 20:59 Last Admin: 03/01/22 22:23 Dose: 12.5 mg Documented by: [id number] Discontinued Medications Aspirin (Aspirin Chew 324 Mg) 324 mg PO NOW STA Stop: 03/01/22 16:47 Last Admin: 03/01/22 16:59 Dose: 324 mg Documented by: [id number] Heparin Sodium/Dextrose (Heparin Iv Adult Wt-Based Low-Dose *No* Bolus Protocol) 1 ea IV ONE ONE; Protocol Stop: 03/01/22 18:19 Last Admin: 03/01/22 19:36 Dose: Not Given Documented by: [id number] Heparin Sodium/Dextrose (Heparin 19203 Unit/500 Ml D5w) Confirm Administered Dose 25,000 units IV .STK-MED ONE Stop: 03/01/22 19:24 Last Admin: 03/01/22 19:36 Dose: 20 ml Documented by: [id number] Cosigned by: [id number] Sodium Chloride (Nss) 500 mls @ 999 mls/hr IV .Q31M ONE Stop: 03/01/22 12:56 Last Infusion: 03/01/22 13:35 Dose: 0 mls/hr Documented by: [id number] Admin: 03/01/22 12:54 Dose: 999 mls/hr Documented by: [id number] Acetaminophen (Ofirmev) 1,000 mg in 100 mls @ 400 mls/hr IV NOW STA Stop: 03/01/22 13:47 Last Infusion: 03/01/22 15:46 Dose: 0 mls/hr Documented by: [id number] Admin: 03/01/22 13:46 Dose: 400 mls/hr Documented by: [id number] Imaging Data Radiologist's Impression: Chest X-Ray 03/01/22 12:25 XR chest 1V portable HISTORY: 71 years-old Male Chest Pain . Acute atypical chest pain COMPARISON: None TECHNIQUE: Portable AP view of the chest FINDINGS: The cardiac silhouette is enlarged. Mitral annular calcifications. Prior median sternotomy with surgical clips suggestive of CABG. Several of the sternotomy wir es are fractured and malaligned. No pneumothorax. Trace pleural effusions with mild left basilar predominant opacities. Pulmonary vascular congestion. Degenerative changes of the shoulders and spine. Left subclavian Wyndpi-h-Zmhk catheter distal tip projects over the expected location of the mid SVC. IMPRESSION: 1. Cardiomegaly with pulmonary vascular congestion. 2. Trace pleural effusions with mild left lung base opacities suggestive of atelectasis versus pneumonitis. 3. Prior median sternotomy. Several sternotomy wires are fractured and malaligned. Chronicity is unknown without comparison. Correlate clinically to exclude sternal dehiscence. ACT 112: Negative or not required by law. The above report was generated using voice recognition software. It may contain grammatical, syntax or spelling errors. Electronically signed by: Julio Lim M.D. 03/01/2022 1:04 PM Discharge Plan Visit Data Chief Complaint: Cardiac Assessment Stated Complaint: HBP 205/86, HEART RATE 8S, CHEST PAIN, ED Provider: Ronni Baird Discharge Problem: Elevated troponin, CAD, multiple vessel, CIDP (chronic inflammatory demyelinating polyneuropathy) Patient Disposition: Admitted As Inpatient Discharge Instructions Interventions: ED Discharge Assessment Last Done: 03/01/22 19:55
[2022-03-01] MEDS ORDERED: HEPARIN 25000 UNIT/500 ML D5W IV ONE (19:23)
[2022-03-01] MEDS ORDERED: ALBUTEROL HFA 8 GM INHALER INH PRN (20:46)
[2022-03-01] MEDS ORDERED: ONDANSETRON INJ 2 MG/ML 2 ML VIAL IV PRN (20:46)
[2022-03-01] MEDS ORDERED: ACETAMINOPHEN 325 MG TAB PO PRN (20:46)
[2022-03-01] MEDS ORDERED: NITROGLYCERIN SL 0.4 MG/TAB TAB SL PRN (20:46)
[2022-03-01] MEDS ORDERED: MoRPHine SULFATE 2 MG/ML CARP IV PRN (20:46)
[2022-03-01] MEDS ORDERED: METOPROLOL TARTRATE 25 MG TAB PO SCH (21:00)
[2022-03-01] MEDS ORDERED: ATORVASTATIN 40 MG TAB PO SCH (21:00)
[2022-03-01] MEDS: HEPARIN SODIUM/DEXTROSE 25,000 UNITS/500 ML BAG IV SCH (21:40)
[2022-03-01 22:03] LABS: C Reactive Protein < 0.50 mg/dl (0-0.5)
[2022-03-01 22:10] LABS: Troponin I High Sensitivity 509.1 pg/ml (0-20)
[2022-03-01] MEDS: MAGNESIUM OXIDE 400 MG TAB PO SCH (22:22)
[2022-03-01] MEDS: lamoTRIgine 25 MG TAB PO SCH (22:22)
[2022-03-01] MEDS: lamoTRIgine 100 MG TAB PO SCH (22:22)
[2022-03-01] MEDS: ASPIRIN 81 MG ECTAB PO SCH (22:23)
[2022-03-01] MEDS: INSULIN ASPART PER UNIT SC SCH (22:45)
[2022-03-02 01:54] LABS: Partial Thromboplastin Ratio 1.1; Partial Thromboplastin Time 29.9 Seconds (21.0-31.0)
[2022-03-02] MEDS ORDERED: GLUCOSE 10 TABS/TUBE PO PRN (02:30)
[2022-03-02] MEDS ORDERED: DEXTROSE 50% 50 ML SYRINGE IV PRN (02:30)
[2022-03-02] MEDS ORDERED: GLUCOSE 40% GEL 15 GM TUBE PO PRN (02:30)
[2022-03-02] MEDS ORDERED: CARBOHYDRATES FOR HYPOGLYCEMIA PO PRN (02:30)
[2022-03-02] MEDS ORDERED: HEPARIN SOD (PORCINE) 1000 UNIT/ML IV ONE (02:30)
[2022-03-02] MEDS ORDERED: GLUCAGON FOR INJ 1 MG VIAL IM PRN (02:30)
[2022-03-02 03:38] LABS: BUN Creatinine Ratio 22.4 (10-20); Calcium 9.1 mg/dl (8.5-10.1); Chol HDL Ratio 6.1 (0-5); Potassium 3.9 mmol/L (3.5-5.1)
[2022-03-02 03:55] LABS: Thyroid Stimulating Hormone 6.246 uIu/ml (0.300-4.500)
[2022-03-02 04:06] LABS: Troponin I High Sensitivity 550.5 pg/ml (0-20)
[2022-03-02 04:29] LABS: T4 Free Thyroxine 1.01 ng/dl (0.61-1.60)
--- NOTE | 2022-03-02 05:56 | Electrocardiogram Report ---
Test Reason : Blood Pressure : / mmHG Vent. Rate : 074 BPM Atrial Rate : 074 BPM P-R Int : 258 ms QRS Dur : 120 ms QT Int : 412 ms P-R-T Axes : 036 -44 084 degrees QTc Int : 457 ms Sinus rhythm with 1st degree A-V block with Premature atrial complexes Left axis deviation Anterior infarct , age undetermined Non-specific intra-ventricular conduction block Abnormal ECG No previous ECGs available Confirmed by Ian Archibald ([id number]) on 03/02/2022 5:55:59 AM Referred By: REFERRED SELF Confirmed By:Ian Archibald
--- NOTE | 2022-03-02 06:52 | XRay Report ---
XR chest 2V PA/lateral HISTORY: 71 years-old Male L lung opacities on AP projection follow-up study in a patient with left basilar opacities COMPARISON: Chest radiograph of same day at 12:30 PM TECHNIQUE: PA and lateral views of the chest FINDINGS: The cardiac silhouette is enlarged. Mitral annular calcifications. Prior median sternotomy with surgi kaur clips suggestive of CABG. Several of the sternotomy wires are fractured and malaligned. No pneumo thorax. Trace pleural effusions with minimal subsegmental left basilar predominant linear opacities. Degenerative changes of the shoulders and spine. Left subclavian Ytxsaw-s-Dbfm catheter distal tip pr ojects over the expected location of the mid SVC. A battery pack projects over the left chest. IMPRESSION: 1. Cardiomegaly without overt pulmonary edema. 2. Probable trace pleural effusions with subsegmental bibasilar atelectasis. ACT 112: Negative or not required by law. The above report was generated using voice recognition software. It may contain grammatical, syntax o r spelling errors. Electronically signed by: Julio Lim M.D. 03/02/2022 6:51 AM
[2022-03-02] MEDS: INSULIN ASPART PER UNIT SC SCH ×4 (07:35→21:15)
[2022-03-02 07:48] LABS: Estimated Average Glucose 157 mg/dl; Hemoglobin A1C 7.1 % (4.5-5.6)
--- NOTE | 2022-03-02 08:01 | Cardiology Consultation ---
Date of Consultation March 02, 2022 Assessment & Plan (1) Unstable angina: (2) Elevated troponin: (3) CAD, multiple vessel: (4) S/P CABG (coronary artery bypass graft): (5) Hypertension: (6) Hyperlipidemia: (7) PAD (peripheral artery disease): ASSESSMENT/PLAN: 1. Unstable angina: Symptoms concerning for unstable angina given acute onset and similar location to previous angina in 1997. Also had elevated troponin. Cannot exclude other etiology but given his history, recommended further ischemic evaluation such as cardiac catheterization. Had abnormal myocardial perfusion study on 09/14/2021. On heparin drip as per primary hospitalist service. Discussed cardiac catheterization in detail. He and family were made aware that CT surgery is not available at this facility. He is agreeable to undergo catheterization. Anticipate femoral approach given left radial artery resection for CABG in the past. Currently asymptomatic. 2. Elevated troponin: Plan as above. Cannot exclude demand ischemia but given acute onset, documented multivessel CAD, and abnormal myocardial perfusion study in August of 2021, will proceed with cardiac catheterization. He also has been experiencing dyspnea with exertion. Echo pending. 3. CAD s/p CABG: Plan as above. Continue aspirin 81 mg daily. Continue beta- reese, high-intensity statin therapy, ARB. 4. Hypertension: Blood pressure mildly elevated. Further adjust antihypertensive regimen. Will likely be able to titrate beta-reese given acceptable heart rate. 5. Dyslipidemia: Continue high-intensity statin therapy. 6. PAD: Has had claudication symptoms in the past. Arterial duplex 09/16/2021 demonstrated bilateral femoral artery disease. 7. Disposition: Cardiology will continue to follow. Patient care communicated and discussed with Dr. Nolen of the primary hospitalist service. Highly complex medical issues. Thank you for allowing me to participate in the care of your patient. Please call for any other questions or concerns. Sincerely, Margarito Archibald M.D. History of Present Illness Reason for Consultation: "concern for unstable angina, +trop, CAD" Requesting Physician: Vipul Nolen Attending Physician: Vipul Nolen History of Present Illness Mr. Willams is pleasant 71 year old gentleman with a history of CAD status post CABG x4, hyperlipidemia, chronic inflammatory demyelinating polyneuropathy (CIDP), PAD, and type 2 diabetes. He has been diagnosed with tussive syncope and seizures. He uses CPAP for sleep apnea at bedtime. He has had the following cardiac studies/procedures: 1. CABG x 4 in 1997 done at [facility]. He had a MACIAS to LAD, left radial artery to OM1, SVG to OM2, and SVG to posterior lateral branch. His symptoms prior to CABG were exertional left arm pain/tingling, which resolved with CABG. 2. Nuclear perfusion study 06/22/11: moderate ischemia of anterolateral wall and a small inferior infarct versus diaphragmatic attenuation. EF was normal. He achieved 7 METs on the Thien protocl and the EKG portion was nondiagnostic obtaining less than 85% of the MPHR. 3. Echo (06/09/11): normal LV size and function; EF 55-60%; mildly dilated RV with normal function; and no significant valvular abnormalities. 4. Cardiac Cath (06/30/11): prox LAD 90%; prox Cx 80%; prox RCA 80%; MACIAS to LAD patent; SVG to OM2 patent; SVG to PL patent; radial artery graft to OM1 patent. 5. Echo 08/19/13: Normal LV size with low normal systolic function. EF 55%. Mildly hypokinetic distal inferior wall. Mild LVH. Moderately dilated RV with normal systolic function. Sclerotic aortic valve. 6. Tilt table test 08/20/13: Normal. 7. Carotid duplex: No stenosis. No definite flow within the right vertebral artery. 8. Loop recorder implantation 08/20/13: No arrhythmia noted despite syncopal episode. No significant tachycardia or bradycardia around syncopal episode. 9. Loop recorder explantation 03/21/2017. 10. Echo 09/14/2021: Normal LV size, wall motion, systolic function. EF 55- 60%. Moderate LVH. Mildly dilated RV with normal systolic function. Sclerotic aortic valve. Mild MR. Normal RVSP. 11. Nuclear stress 09/14/2021: Small, mild ischemia involving base to mid inferior/inferoseptal ischemia. EF 60%. Normal wall motion. 12. Arterial duplex 09/16/2021: Right distal femoral artery 50-74%. Left ostial/proximal femoral artery 50-74%. Normal bilateral LOLI. Patient was admitted on 03/01/2022 after presenting with left shoulder pain, diaphoresis, and shortness of breath. On 02/28/2022, he had IVIG infusion, which is been a chronic treatment for him. He did not have anything out of the ordinary for him at that time. Later that night at approximately 10 or 10:30 p.m., he developed mild diaphoresis, clamminess, spasm in all 4 extremities and overall feeling uncomfortable. Symptoms were mild an subsided and he was able to go to sleep. Then on 03/01/2022 at approximately 9 or 9:30 a.m., he developed acute left shoulder pain with shortness of breath, diaphoresis, and feeling clammy. Symptoms occurred at rest. There was no chest discomfort. Symptoms persisted for approximately 2.5 hours or more. He received intravenous Tylenol in the emergency department and symptoms resolved within 10-15 minutes. His initial high sensitivity troponin was 71.7 and approximately 3 hours later was 344.5. It peaked at 550.5 early this morning. He has not had any further shoulder pain, shortness of breath, diaphoresis. He feels back to baseline. In the past, before his 1997 CABG, he had been experiencing exertional left arm pain, but no chest pain. He had mild orthopnea overnight but admits he did not have CPAP, which he usually uses. He chronically sleeps with his head elevated. Blood pressure at home before presenting to the emergency department reported as 204/94. Blood pressure was elevated on arrival at 156/73 mmHg. He has been walking on a treadmill to try to improve his endurance, however he has not noted much improvement. He walks for a total of 9 minutes but in 3 minutes intervals before he has to stop due to dyspnea. He walks approximately 2 days per week. He uses a walker due to significant balance issues. He denies melena, hematochezia, hematuria, or other bleeding. He has tussive syncope but no syncope related to this admission. He denies palpitations or edema. Review of systems:As above. Review of systems otherwise negative/unremarkable. Family history:Family history of CAD. Social history: Denies smoking history or drug use. Consumes alcohol occasionally. ( Eva) with 3 children. 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 Lives in [place]. He was accompanied at the bedside by his and his son, aNrciso. Allergies Allergy/AdvReac Type Severity Reaction Status Date / Time adhesive Allergy Intermediate red, Verified 03/01/22 12:43 inflammed No Known Drug Allergies Allergy NKDA Verified 03/01/22 12:43 Home Medications Medication Instructions Recorded Confirmed Type aspirin 81 mg tablet 81 mg PO QPM tab 07/24/19 03/01/22 History metformin 500 mg tablet,extended 500 mg PO BID #60 tab 07/24/19 03/01/22 History release 24 hr nitroglycerin 0.4 mg sublingual 0.4 mg SL Q5M PRN #25 tab 07/24/19 03/01/22 History tablet albuterol sulfate 90 mcg/actuation 1 - 2 puff INHALATION QID PRN g 08/23/21 03/01/22 History aerosol inhaler duloxetine 30 mg capsule,delayed 30 mg PO DAILY 08/23/21 03/01/22 History release magnesium oxide 400 mg PO QPM 08/23/21 03/01/22 History isosorbide mononitrate 30 mg 30 mg PO DAILY #30 tab 09/18/21 03/01/22 Rx tablet,extended release 24 hr cholecalciferol (vitamin D3) 125 125 mcg PO DAILY 10/06/21 03/01/22 History mcg (5,000 unit) capsule losartan 100 mg tablet 100 mg PO DAILY 10/06/21 03/01/22 History metoprolol tartrate 25 mg tablet 12.5 mg PO BID #90 tab 02/07/22 03/01/22 Rx atorvastatin 80 mg tablet 80 mg PO QPM #90 tab 02/25/22 03/01/22 Rx Ivig 1 dose IV .Q3WKS 03/01/22 03/01/22 History Potassium Otc 1 tab PO DAILY 03/01/22 03/01/22 History folic acid-vit B6-vit B12 2.5 1 tab PO DAILY 03/01/22 03/01/22 History mg-25 mg-2 mg tablet (Folbic) hydrochlorothiazide 25 mg tablet 12.5 mg PO DAILY 03/01/22 03/01/22 History lamotrigine 200 mg tablet 200 mg PO BID 03/01/22 03/01/22 History lamotrigine 25 mg tablet 25 mg PO BID 03/01/22 03/01/22 History vitamin B complex 1 tab PO DAILY 03/01/22 03/01/22 History Patient History Medical History CAD, multiple vessel CIDP (chronic inflammatory demyelinating polyneuropathy) Hyperlipidemia Hypertension Obstructive sleep apnea Peripheral neuropathy Port-A-Cath in place Seizure-like activity SOB (shortness of breath) Syncope, tussive Type 2 diabetes mellitus Surgical History S/P CABG (coronary artery bypass graft) 1997- [place] Family History Family/Other Family history of CABG Coronary heart disease Father Colorectal cancer Grandfather (Maternal) Coronary heart disease Grandfather (Paternal) Colorectal cancer Uncle Colorectal cancer Uncle Colorectal cancer Social History Smoking Status: Never smoker Do You Dip or Chew Tobacco: No; Hx Alcohol Use: Yes Alcohol type: beer Alcohol Intake Frequency: 4 or More x per/Week Alcohol Intake Frequency Comment: 1 beer nightly Hx Substance Use: No Preferred Language: Croatian Communication Ability: Effective Photographic Laboratory Supervisor Required: No Beliefs That Will Affect Care: Pentecostal Pentecostal Beliefs: zoroastrianism marital status: Current Living Situation: Spouse Current Living Situation Comment: Luis current occupational status: retired 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 No acute distress. NECK: No JVD. No hepatic jugular reflux noted. Right carotid bruit. Normal carotid upstrokes bilaterally. COR: PMI nonpalpable. No heave. Regular. No ectopy. Normal S1 and S2. 1/6 systolic ejection murmur best heard at the right upper sternal border. No rubs or gallops. PULM: Clear to auscultation bilaterally. No wheezes rales or rhonchi. ABD: Obese. soft. nontender. nondistended. Normal active bowel sounds. No bruit or mass noted. EXT: 2+ right radial pulse. 1+ bilateral posterior tibialis pulse. Trace bilateral lower extremity edema, right (SVG harvest site) greater than left. No cyanosis. PSYCH: Affect appeared appropriate. Results & Data ([facility]) Vital Signs (Past 12 Hours) Vital Signs Temp Pulse Pulse Resp BP BP Pulse Ox 03/02/22 07:14 36.8 C 78 18 160/81 H 94 03/02/22 04:13 36.4 C L 77 18 146/85 H 96 03/01/22 23:08 36.5 C 67 18 152/81 H 95 03/01/22 20:49 36.4 C L 76 18 189/104 H 98 Laboratory Results Laboratory Results - last 24 hr 03/01/22 03/01/22 03/01/22 15:15 17:36 21:22 ESR 30 H APTT PTT Ratio Sodium Potassium Chloride Carbon Dioxide Anion Gap BUN Creatinine Est Cr Clr Drug Dosing Est GFR ( Amer) Est GFR (Non-Af Amer) BUN/Creatinine Ratio Glucose POC Glucose Estimat Average Glucose Hemoglobin A1c Calcium Troponin I High Sens 344.5 H* D C-Reactive Protein Triglycerides Cholesterol LDL Cholesterol, Calc VLDL Cholesterol, Calc HDL Cholesterol Cholesterol/HDL Ratio TSH Free T4 SARS-CoV-2, RNA, NAAT NEGATIVE 03/01/22 03/01/22 03/02/22 21:22 21:22 01:33 ESR APTT 29.9 PTT Ratio 1.1 Sodium Potassium Chloride Carbon Dioxide Anion Gap BUN Creatinine Est Cr Clr Drug Dosing Est GFR ( Amer) Est GFR (Non-Af Amer) BUN/Creatinine Ratio Glucose POC Glucose 186 H Estimat Average Glucose Hemoglobin A1c Calcium Troponin I High Sens 509.1 H* D C-Reactive Protein < 0.50 Triglycerides Cholesterol LDL Cholesterol, Calc VLDL Cholesterol, Calc HDL Cholesterol Cholesterol/HDL Ratio TSH Free T4 SARS-CoV-2, RNA, NAAT 03/02/22 03/02/22 03/02/22 03:04 03:04 03:04 ESR APTT PTT Ratio Sodium 139 Potassium 3.9 Chloride 103 Carbon Dioxide 29 Anion Gap 7 BUN 24 H Creatinine 1.07 Est Cr Clr Drug Dosing 78.0 Est GFR ( Amer) 80.0 Est GFR (Non-Af Amer) 69.0 BUN/Creatinine Ratio 22.4 H Glucose 93 POC Glucose Estimat Average Glucose 157 Hemoglobin A1c 7.1 H Calcium 9.1 Troponin I High Sens 550.5 H* C-Reactive Protein Triglycerides 396 H Cholesterol 140 LDL Cholesterol, Calc 38 VLDL Cholesterol, Calc 79 H HDL Cholesterol 23 Cholesterol/HDL Ratio 6.1 H TSH 6.246 H Free T4 1.01 SARS-CoV-2, RNA, NAAT 03/02/22 03/02/22 03/02/22 07:16 08:59 08:59 ESR APTT 53.0 H* PTT Ratio 1.9 Sodium Potassium Chloride Carbon Dioxide Anion Gap BUN Creatinine Est Cr Clr Drug Dosing Est GFR ( Amer) Est GFR (Non-Af Amer) BUN/Creatinine Ratio Glucose POC Glucose 124 H Estimat Average Glucose Hemoglobin A1c Calcium Troponin I High Sens 375.4 H* D C-Reactive Protein Triglycerides Cholesterol LDL Cholesterol, Calc VLDL Cholesterol, Calc HDL Cholesterol Cholesterol/HDL Ratio TSH Free T4 SARS-CoV-2, RNA, NAAT 03/02/22 11:10 ESR APTT PTT Ratio Sodium Potassium Chloride Carbon Dioxide Anion Gap BUN Creatinine Est Cr Clr Drug Dosing Est GFR ( Amer) Est GFR (Non-Af Amer) BUN/Creatinine Ratio Glucose POC Glucose 128 H Estimat Average Glucose Hemoglobin A1c Calcium Troponin I High Sens C-Reactive Protein Triglycerides Cholesterol LDL Cholesterol, Calc VLDL Cholesterol, Calc HDL Cholesterol Cholesterol/HDL Ratio TSH Free T4 SARS-CoV-2, RNA, NAAT Diagnostic Findings Telemetry personally reviewed: Sinus rhythm. No arrhythmia. ECGs personally reviewed: ECG 03/01/2022 11:50 a.m.: Sinus rhythm with first-degree AV block and PACs. Anterior infarct. IVCB. ECG 03/02/2022 at 4:17 a.m.: Sinus rhythm with first-degree AV block. PACs and PVCs. Possible septal infarct. Lateral T-wave abnormality. Chest x-ray 03/01/2022: No pulmonary edema per Radiology. Probable trace pleural effusions per Radiology. Medications Administered Current Inpatient Medications Acetaminophen (Acetaminophen 325 Mg Tab) 650 mg PO Q4H PRN PRN Reason: Pain or Fever Stop: 03/31/22 20:45 Albuterol (Albuterol Hfa 8 Gm Inhaler) 2 puffs INH QID PRN PRN Reason: Shortness Of Breath Or Wheezin Stop: 03/31/22 20:45 Aspirin (Aspirin 81 Mg Ectab) 81 mg PO QPM [facility] Stop: 03/31/22 20:59 Last Admin: 03/01/22 22:23 Dose: 81 mg Documented by: Atorvastatin Calcium (Atorvastatin 40 Mg Tab) 80 mg PO QPM [place] Stop: 03/31/22 20:59 Last Admin: 03/01/22 22:23 Dose: 80 mg Documented by: Dextrose (Dextrose 50% 50 Ml Syringe) 25 - 50 ml IV UD PRN; Protocol PRN Reason: Hypoglycemia Protocol Stop: 04/01/22 02:29 Duloxetine HCl (Duloxetine Hcl 30 Mg Cap) 30 mg PO DAILY [place] Stop: 04/01/22 08:59 Last Admin: 03/02/22 08:15 Dose: 30 mg Documented by: Glucagon (Glucagon For Inj 1 Mg Vial) 1 mg IM UD PRN; Protocol PRN Reason: Hypoglycemia Protocol Stop: 04/01/22 02:29 Glucose (Glucose 40% Gel 15 Gm Tube) 15 - 30 gm PO UD PRN; Protocol PRN Reason: Hypoglycemia Protocol Stop: 04/01/22 02:29 Glucose (Glucose 10 Tabs/Tube) 4 - 8 tabs PO UD PRN; Protocol PRN Reason: Hypoglycemia Protocol Stop: 04/01/22 02:29 Hydrochlorothiazide (Hydrochlorothiazide 25 Mg Tab) 12.5 mg PO DAILY [place] Stop: 04/01/22 08:59 Last Admin: 03/02/22 08:15 Dose: 12.5 mg Documented by: Heparin Sodium/Dextrose (Heparin Sodium/Dextrose) 25,000 units in 500 mls @ 25 mls/hr IV .Q20H [facility]; Protocol Stop: 03/31/22 18:29 Last Titration: 03/02/22 02:32 Dose: 1,250 units/hr, 25 mls/hr Documented by: Insulin Aspart (Insulin Aspart Per Unit) 0 units SC ACHS [place] Stop: 03/31/22 20:59 Last Admin: 03/02/22 11:12 Dose: Not Given Documented by: Isosorbide Mononitrate (Isosorbide [place] Extended Rel 30 Mg Tabcr) 30 mg PO RACHNA LY [place] Stop: 04/01/22 08:59 Last Admin: 03/02/22 08:15 Dose: 30 mg Documented by: Lamotrigine (Lamotrigine 100 Mg Tab) 200 mg PO BID [place] Stop: 03/31/22 20:59 Last Admin: 03/02/22 08:16 Dose: 200 mg Documented by: Lamotrigine (Lamotrigine 25 Mg Tab) 25 mg PO BID [place] Stop: 03/31/22 20:59 Last Admin: 03/02/22 08:16 Dose: 25 mg Documented by: Losartan Potassium (Losartan Potassium 50 Mg Tab) 100 mg PO DAILY [place] Stop: 04/01/22 08:59 Last Admin: 03/02/22 08:15 Dose: 100 mg Documented by: Magnesium Oxide (Magnesium Oxide 400 Mg Tab) 400 mg PO QPM [place] Stop: 03/31/22 20:59 Last Admin: 03/01/22 22:22 Dose: 400 mg Documented by: Metoprolol Tartrate (Metoprolol Tartrate 25 Mg Tab) 25 mg PO BID [place] Stop: 04/01/22 08:59 Last Admin: 03/02/22 08:16 Dose: 25 mg Documented by: Miscellaneous (Carbohydrates For Hypoglycemia ) 15 - 30 gm PO UD PRN PRN Reason: Hypoglycemia Treatment Stop: 04/01/22 02:29 Morphine Sulfate (Morphine Sulfate 2 Mg/Ml Carp) 2 mg IV Q30M PRN PRN Reason: Chest Pain Stop: 03/15/22 20:45 Nitroglycerin (Nitroglycerin Sl 0.4 Mg/Tab Tab) 0.4 mg SL Q5M PRN PRN Reason: chest pain Stop: 03/31/22 20:45 Ondansetron HCl (Ondansetron Inj 2 Mg/Ml 2 Ml Vial) 4 mg IV Q6H PRN PRN Reason: Nausea Stop: 03/31/22 20:45 Vitamin B Complex (Vitamin B Complex Tab) 1 tab PO DAILY [facility] Stop: 04/01/22 08:59 Last Admin: 03/02/22 08:15 Dose: 1 tab Documented by: Vitamin D (Cholecalciferol 1,000 Units 25 Mcg Tab) 5,000 units PO DAILY [facility] Stop: 04/01/22 08:59 Last Admin: 03/02/22 08:15 Dose: 5,000 units Documented by: PG Care Time/CCT Total # of Minutes Spent Total Time Spent with Patient: Total time spent is greater than 50% in coordination of care (as documented) at patient's floor/unit and/or counseling patient: Coding Level of Care Code 99825 Initial Inpt Care Lvl 3 Diagnoses Unstable angina I20.0 Elevated troponin R77.8 CAD, multiple vessel I25.10 S/P CABG (coronary artery bypass graft) Z95.1 Hypertension I10 Hyperlipidemia E78.5 PAD (peripheral artery disease) I73.9
[2022-03-02] MEDS: DULoxetine HCL 30 MG CAP PO SCH (08:15)
[2022-03-02] MEDS: CHOLECALCIFEROL 1,000 UNITS 25 MCG TAB PO SCH (08:15)
[2022-03-02] MEDS: LOSARTAN POTASSIUM 50 MG TAB PO SCH (08:15)
[2022-03-02] MEDS: VITAMIN B COMPLEX TAB PO SCH (08:15)
[2022-03-02] MEDS: hydroCHLOROthiazide 25 MG TAB PO SCH (08:15)
[2022-03-02] MEDS: METOPROLOL TARTRATE 25 MG TAB PO SCH ×2 (08:16→21:01)
[2022-03-02] MEDS: lamoTRIgine 25 MG TAB PO SCH ×2 (08:16→21:01)
[2022-03-02] MEDS: lamoTRIgine 100 MG TAB PO SCH ×2 (08:16→21:02)
[2022-03-02] MEDS ORDERED: ISOSORBIDE MONO EXTENDED REL 30 MG TABCR PO SCH (09:00)
[2022-03-02] MEDS ORDERED: NON-FORMULARY MEDICATION (Vitamin B Complex Tablet) PO SCH (09:00)
[2022-03-02 09:37] LABS: Partial Thromboplastin Ratio 1.9
--- NOTE | 2022-03-02 14:12 | Pre Anesthesia Assessment ---
Date of Service March 02, 2022 Pre Sedation Assessment Vital Signs Temp Pulse Pulse Pulse Resp BP BP 03/02/22 11:07 36.4 C L 78 18 143/85 H 03/02/22 08:00 71 03/02/22 07:14 36.8 C 78 18 160/81 H 03/02/22 04:13 36.4 C L 77 18 146/85 H 03/01/22 23:08 36.5 C 67 18 152/81 H 03/01/22 20:49 36.4 C L 76 18 03/01/22 19:55 63 18 143/83 H 03/01/22 17:01 70 18 143/83 H 03/01/22 16:09 74 16 147/75 H BP Pulse Ox 03/02/22 11:07 95 03/02/22 08:00 03/02/22 07:14 94 03/02/22 04:13 96 03/01/22 23:08 95 03/01/22 20:49 189/104 H 98 03/01/22 19:55 96 03/01/22 17:01 98 03/01/22 16:09 93 Cardiovascular + regular rate Respiratory normal respiratory effort, lungs clear to auscultation Pre-Sedation Airway Assessment Smoking Status: Never smoker Mallampati Class: III ASA: ASA3 NPO Status Date of Last Intake of Fluids: 03/02/22 Time of Last Intake of Fluids: 08:30 Last Oral Intake of Fluids Comment: sips with meds Date of Last Intake of Solid Food: 03/01/22 Time of Last Intake of Solid Foods: 21:30 Procedure Planning Contraindications for Sedation: none Current Medications Reviewed: Yes Notes The planned sedation has been discussed with the patient. Informed Consent was obtained. I have identified the patient, determined the appropriateness of sedation and have assessed the patient immediately prior to the procedure. All medicine(s) and interventions are by my order.
[2022-03-02] MEDS ORDERED: HEPARIN (PORCINE) 1000 UNIT/ML 10 ML (CATH LAB USE ONLY) ONE (14:19)
[2022-03-02] MEDS ORDERED: niCARdipine HCL INJ 2.5 MG/ML 10 ML AMP ONE (14:19)
[2022-03-02] MEDS ORDERED: fentaNYL citrate 100 MCG/2 ML VIAL ONE (14:19)
[2022-03-02] MEDS ORDERED: MIDAZOLAM HCL 1 MG/ML 2ML VIAL ONE (14:19)
[2022-03-02] MEDS ORDERED: NITROGLYCERIN/D5W 100MCG/ML 20ML SYR ONE (14:20)
--- NOTE | 2022-03-02 14:55 | XCELERA ---
[id number]
--- NOTE | 2022-03-02 16:31 | Cardiac Catheterization ---
[facility] Data: Service Electrician Cardiac Status Clinical evaluation leading to the procedure CAD Presenation: Unstable angina Anginal Classification: CCS IV Heart Failure: No Cardiogenic Shock within 24 Hours: No Cardiac Arrest within 24 Hours: No Imaging Studies Past 6 Months: Yes Stress Studies Past 6 Months: No Coronary Anatomy Dominant: Right Diagnostic Physicians Name: Ian Archibald MD Status: Elective Closure Device Percutaneous Entry Location: Femoral Closure Device: None-Manual Hold Recommendations: Medical Therapy and/or Counseling Cardiac Cath Procedure Full Procedure Date March 02, 2022 Pre-Procedure Diagnosis Pre-Procedure Diagnosis: Angina and CAD AUC Score AUC Score: 8 Post-Procedure Diagnosis Post-Procedure Diagnosis: Severe CAD Procedure(s) Performed Procedure(s) Performed: Coronary Angiography, Ultrasound Guided Vascular Access and Bypass Graft Angiography Equipment Maintenance Superintendent Ian Archibald MD Manager Category(s) Electronic Scale Tester Estimated Blood Loss Estimated Blood Loss: < 30 ml Medication(s) Medication(s): Fentanyl, Lidocaine 1% and Versed Summary of Findings Procedures: 1. Coronary angiography 2. Bypass graft angiography 3. Moderate sedation 4. Ultrasound guidance for vascular access Indication: 71-year-old gentleman with known multivessel CAD and CABG x4 (MACIAS to LAD, left radial artery to OM1, SVG to OM2, and SVG to PL), peripheral arterial disease, dyslipidemia, and type 2 diabetes. He presented with acute shortness of breath, diaphoresis, and left shoulder pain with elevated troponin. Previous angina was left upper extremity pain. Myocardial perfusion study in August 2021 suggested inferior and inferoseptal ischemia. Coronary angiography: 1. Left main: Mid LM 50%. 2. Left anterior descending: Ostial LAD 100%. LAD fills via MACIAS. Proximal and mid LAD diffuse severe CAD. Mid LAD 95%. Small Apical LAD 70%. 3. Circumflex: Ostial circumflex 95% proximal circumflex diffuse CAD. Small obtuse marginal branch. Circumflex gives left to right collaterals. 4. Right coronary artery: Dominant vessel. Proximal RCA 100%. RCA receives collaterals from LAD and circumflex distribution. Coronary bypass grafts: 1. MACIAS to LAD: widely patent. 2. Left radial artery to OM 1: Possible ostial stenosis. 5 [place] JR4 diagnostic catheter felt seated within the ostium and initial imaging would suggest significant ostial stenosis. The catheter then advanced further into the graft without obvious lesion however the arterial waveform became ventricularized. The remainder of the graft was without significant CAD. 3. SVG to OM 2: Patent. OM 2 provided left to right collaterals to the PDA. 4. SVG to PL: Occluded. Ultrasound guidance for vascular access: 1. The right femoral artery was visualized under ultrasound. Access needle was advanced under ultrasound guidance and cannulated the right femoral artery without known complication. Moderate sedation: 1. Sedation start time: 3:05 PM 2. Sedation end time: 4:17 PM Impression: 1. Severe multivessel CAD involving left main, LAD (ostial 100%), circumflex, and RCA (prox 100%). 2. Occluded SVG to PL branch. 3. Patent MACIAS to LAD, SVG to OM 2, and radial graft to OM1 (with questionable ostial disease involving the radial graft). 4. Circumflex, OM 2, and LAD provide left to right collaterals. Plan: 1. Medical therapy recommended. 2. Risk factor modification. Hemodynamics Rest Ao:: 104/57 Final Ao: 130/62 LV: n/a Recommendations Recommendations: Medical Therapy and/or Counseling Specimens Specimens: None Radiation Exposure (mGy) 3135 mGy. Fluoro time 25:10. Contrast (mls) 75 ml Procedural Complication(s) None Disposition PCU I attest to the content of the Intraoperative Record and any orders documented therein. Any exceptions are noted below. [facility] Card Cath Procedure Codes Cardiac Catheterization Procedure 1: Cardiovascular Cath Procedures: 47857 Coronaries and Grafts/IM (venous & atrial) Therapeutic Services & Ancillary Proc Procedure 1: Cardiovascular Tx and Anc Procedures: 59261 Ultrasonic Guidance Vascular Access Moderate Sedation Procedure 1: Sedation/Anesthesia: 24798 Mod Sedation by the same physician;Init15 Min Child Age 5 & Up Procedure 2: Sedation/Anesthesia: 80663 Mod Sedation by the same physician; Ea [id number] Minutes Procedure 3: Sedation/Anesthesia: 60926 Mod Sedation by the same physician; Ea [id number] Minutes Procedure 4: Sedation/Anesthesia: 20234 Mod Sedation by the same physician; Ea [id number] Minutes Procedure 5: Sedation/Anesthesia: 39561 Mod Sedation by the same physician; Ea [id number] Minutes PG Care Time/CCT Total # of Minutes Spent Total Time Spent with Patient: Total time spent is greater than 50% in coordination of care (as documented) at patient's floor/unit and/or counseling patient:
--- NOTE | 2022-03-02 16:36 | Post Anesthesia Assessment ---
Date of Service March 02, 2022 Post Sedation Assessment Vital Signs Temp Pulse Pulse Pulse Resp BP BP 03/02/22 16:34 65 16 03/02/22 16:25 66 16 03/02/22 11:07 36.4 C L 78 18 143/85 H 03/02/22 08:00 71 03/02/22 07:14 36.8 C 78 18 160/81 H 03/02/22 04:13 36.4 C L 77 18 146/85 H 03/01/22 23:08 36.5 C 67 18 152/81 H 03/01/22 20:49 36.4 C L 76 18 03/01/22 19:55 63 18 143/83 H 03/01/22 17:01 70 18 143/83 H BP Pulse Ox 03/02/22 16:34 151/72 H 94 03/02/22 16:25 133/79 93 03/02/22 11:07 95 03/02/22 08:00 03/02/22 07:14 94 03/02/22 04:13 96 03/01/22 23:08 95 03/01/22 20:49 189/104 H 98 03/01/22 19:55 96 03/01/22 17:01 98 Recovery Score Activity: Moves 4 extremities Respiration: Deep Breath/Cough Circulation: +/-20% PreAnes Value Consciousness: Fully Awake Oxygen Saturation: > 92% On Room Air Post Anesthesia Score: 10 Discharge Sedation Level of Care: Fast Track Phase II Post Sedation Plan On clinical assessment, the patient appears to have tolerated the sedation without complications. Patient is recovering as anticipated. Patient will continue to be monitored by nursing and may be discharged when sedation discharge criteria are met per below protocol. Upon Completions of procedure up to 15 minutes continue every 5 minute vital signs and the P.A.R. score; then discharge to a Phase I or Fast Track to Phase II per the following guidelines: * Discharge Patient to appropriate Phase II area if PAR is 8 or greater or ret urn to pre- procedure baseline. The post - procedure orders will be as directed. * If PAR score is less than 8 or not return to pre-procedure baseline then patient will follow Phase I monitoring till PAR is reached for Phase II. The Phase I may be done in procedure room or may call to secure a Phase I area. * If naloxone or flumazenil are used for reversal, hold in Phase I for continued monitoring from when last reversal dose was given for a minimum of 60 minutes or longer pending the nurse and/or physician discretion of patient condition before discharge to Phase II. Please call the Sedation Physician to re-evaluate and complete post-note for discharge to Phase II area. Do NOT discharge from procedure sedation or Phase 1 until post- sedation evaluation note is complete by procedure /sedation MD Sedation Discharge Instructions to be given to the patient at discharge to home.
[2022-03-02] MEDS ORDERED: SODIUM CHLORIDE 0.9% 1000ML 1,000 ML IV SCH (16:45)
[2022-03-02] MEDS: HEPARIN SODIUM/DEXTROSE 25,000 UNITS/500 ML BAG IV SCH (17:04)
[2022-03-02] MEDS ORDERED: ISOSORBIDE MONO EXTENDED REL 30 MG TABCR PO ONE (17:15)
--- NOTE | 2022-03-02 18:46 | Hospitalist Progress Note ---
Date of Service March 02, 2022 Assessment & Plan (1) Unstable angina: Plan: Concern for such vs mild NSTEMI; former is likely. Heparin drip initiated yesterday in light of known CAD, prior CABG, prior +stress test, troponin levels, etc. Echo today with preserved EF and no wall motion abnormalities. s/p heart cath by Dr Avendano today. This showed severe [place] CAD along with 1 occluded graft and 3 patent grafts. The occluded graft had multiple collaterals. I spoke with Dr Archibald - medical management advised. Will need more aggressive Rx of lipids - consider tricor or fish oil or both for high trigs/low HDL. Needs better BP control. Cont aspirin. Appreciate Dr Archibald's consultation. (2) Elevated troponin: Plan: see #1 above Peak HS trop 550, and now trending down. (3) CAD, multiple vessel: Plan: 4-vessel CABG in 1997 - [facility]. had positive/abnl nuclear stress test in 08/2021 as above. s/p heart cath today - severe [place] CAD; 3 grafts are patent; 1 patent is occluded but has collaterals medical management advised by cardiology cont asa, beta reese, statin, imdur, nitro SL prn, ARB. see discussion above Re: lipids. increased beta reese this am. Dr Archibald recommending higher dose of imdur. (4) Positive blood culture: Plan: blood cultures were drawn yesterday evening due to several weeks/months of severe night-sweats, flushing, etc. 1 set of cultures turned positive this afternoon. until we have more information will cover with daptomycin 6mg/kg IV now. (deferring on vancomycin since he just had a large contrast load for his heart cath). hold statin due to daptomycin use. (5) Night sweats: Plan: several months in duration. no weight loss. crp normal; sed rate minimally elevated. repeat cxr without left-sided infiltrates. blood cultures - 1 set turned positive this afternoon. uncertain if pathogenic or contaminant but will cover such with IV daptomycin. (6) Insomnia: Plan: trial of trazodone 25mg HS (7) CIDP (chronic inflammatory demyelinating polyneuropathy): Plan: follows with Neurology at [facility] in [place]. IVIG q3 weeks for such. IVIG has been utilized for about 2 years. last infusion - 02/28/22. (8) Hyperlipidemia: Plan: very high trigs very low HDL consider tricor, prescription fish oil, etc (9) Hypertension: Plan: poorly controlled. increased metoprolol to 25mg BID. increase imdur to 60mg daily. cont ARB, HCTZ. (10) Obstructive sleep apnea: Plan: need to inquire if using CPAP or BIPAP at home. if untreated this is likely contributing to chronic insomnia. (11) PAD (peripheral artery disease): Plan: arterial duplex studies with mild-moderate PAD of legs but normal ABIs. night-time leg cramps, however, unlikely to be from PAD. he denies claudication of legs with activity. (12) Seizure-like activity: Plan: history of focal & generalized seizures in the past. cont lamictal. follows with neurology in [place]. patient clarified that lamictal dose is 250mg BID. (13) Type 2 diabetes mellitus: Plan: Hba1c 7.1%. BSGs ac/hs. Novolog sliding scale. add basal insulin as needed. hold metformin. (14) Abnormal CXR: Plan: ?left sided infiltrates on pCXR 03/01 repeat 2-view cxr does not show the left-sided infiltrates. (15) DVT prophylaxis: Plan: heparin drip low-dose x 48 hours Plan: updated this am at bedside Admission and Anticipated Discharge Date Admission Date: March 01, 2022 Subjective patient was quite upset this am I saw him mid-morning he was upset that last pm he hadn't received any meal/dinner until late in the evening now, he is NPO and the uncertainty of when he is getting his cath is also upsetting to him he slept poorly overnight he denies any chest pain, dyspnea, left shoulder pain, or any other ischemic symptoms tele overnight wnl Review of Systems Review of Systems: gen - no fevers/chills cv - no chest pain, mild orthopnea overnight pulm - no cough GI - no nausea/emesis Physical Exam Physical Exam: gen - agitated/upset, but NAD, a/o x 3 neck - no JVD mouth - MMM heart - RRR, s1 s2, 1/6 systolic murmur lungs - slightly decreased BS bases, otherwise CTA b/l abd - soft NT ND BS+ chest - port, left upper chest - clean ext - no edema, pulses 2+ b/l Results & Data Results & Data ([facility]) Vital Signs (Past 12 Hours) Vital Signs Temp Pulse Pulse Resp BP BP BP 03/02/22 17:40 77 13 03/02/22 17:30 64 10 L 03/02/22 17:20 69 2 L 03/02/22 17:10 66 0 L 130/70 03/02/22 17:00 64 0 L 136/72 03/02/22 16:50 8 L 147/56 H 03/02/22 16:34 65 16 151/72 H 03/02/22 16:25 66 16 133/79 03/02/22 11:07 36.4 C L 78 18 143/85 H 03/02/22 08:00 71 03/02/22 07:14 36.8 C 78 18 160/81 H Pulse Ox 03/02/22 17:40 03/02/22 17:30 03/02/22 17:20 03/02/22 17:10 03/02/22 17:00 03/02/22 16:50 03/02/22 16:34 94 03/02/22 16:25 93 03/02/22 11:07 95 03/02/22 08:00 03/02/22 07:14 94 Laboratory Results Laboratory Results - last 24 hr 03/01/22 03/01/22 03/01/22 21:22 21:22 21:22 ESR 30 H APTT PTT Ratio Sodium Potassium Chloride Carbon Dioxide Anion Gap BUN Creatinine Est Cr Clr Drug Dosing Est GFR ( Amer) Est GFR (Non-Af Amer) BUN/Creatinine Ratio Glucose POC Glucose 186 H Estimat Average Glucose Hemoglobin A1c Calcium Troponin I High Sens 509.1 H* D C-Reactive Protein < 0.50 Triglycerides Cholesterol LDL Cholesterol, Calc VLDL Cholesterol, Calc HDL Cholesterol Cholesterol/HDL Ratio TSH Free T4 03/02/22 03/02/22 03/02/22 01:33 03:04 03:04 ESR APTT 29.9 PTT Ratio 1.1 Sodium 139 Potassium 3.9 Chloride 103 Carbon Dioxide 29 Anion Gap 7 BUN 24 H Creatinine 1.07 Est Cr Clr Drug Dosing 78.0 Est GFR ( Amer) 80.0 Est GFR (Non-Af Amer) 69.0 BUN/Creatinine Ratio 22.4 H Glucose 93 POC Glucose Estimat Average Glucose 157 Hemoglobin A1c 7.1 H Calcium 9.1 Troponin I High Sens 550.5 H* C-Reactive Protein Triglycerides 396 H Cholesterol 140 LDL Cholesterol, Calc 38 VLDL Cholesterol, Calc 79 H HDL Cholesterol 23 Cholesterol/HDL Ratio 6.1 H TSH Free T4 03/02/22 03/02/22 03/02/22 03:04 07:16 08:59 ESR APTT 53.0 H* PTT Ratio 1.9 Sodium Potassium Chloride Carbon Dioxide Anion Gap BUN Creatinine Est Cr Clr Drug Dosing Est GFR ( Amer) Est GFR (Non-Af Amer) BUN/Creatinine Ratio Glucose POC Glucose 124 H Estimat Average Glucose Hemoglobin A1c Calcium Troponin I High Sens C-Reactive Protein Triglycerides Cholesterol LDL Cholesterol, Calc VLDL Cholesterol, Calc HDL Cholesterol Cholesterol/HDL Ratio TSH 6.246 H Free T4 1.01 03/02/22 03/02/22 03/02/22 08:59 11:10 16:57 ESR APTT PTT Ratio Sodium Potassium Chloride Carbon Dioxide Anion Gap BUN Creatinine Est Cr Clr Drug Dosing Est GFR ( Amer) Est GFR (Non-Af Amer) BUN/Creatinine Ratio Glucose POC Glucose 128 H 104 H Estimat Average Glucose Hemoglobin A1c Calcium Troponin I High Sens 375.4 H* D C-Reactive Protein Triglycerides Cholesterol LDL Cholesterol, Calc VLDL Cholesterol, Calc HDL Cholesterol Cholesterol/HDL Ratio TSH Free T4 PG Care Time/CCT Total # of Minutes Spent Total Time Spent with Patient: Total time spent is greater than 50% in coordination of care (as documented) at patient's floor/unit and/or counseling patient: Coding Level of Care Code 08867 Subseq Hosp Care Lvl 3 Diagnoses Unstable angina I20.0 Elevated troponin R77.8 CAD, multiple vessel I25.10 Night sweats R61 Insomnia G47.00 CIDP (chronic inflammatory demyelinating polyneuropathy) G61.81 Hyperlipidemia E78.5 Hypertension I10 Obstructive sleep apnea G47.33 PAD (peripheral artery disease) I73.9 Seizure-like activity R56.9 Type 2 diabetes mellitus E11.9 Abnormal CXR R93.89 DVT prophylaxis Z29.9 Positive blood culture R78.81
[2022-03-02] MEDS ORDERED: DAPTOmycin 450 MG in SYRINGE 0 ML IV ONE (19:30)
[2022-03-02] MEDS ORDERED: traZODone HCL 50 MG TAB PO SCH (21:00)
[2022-03-02] MEDS: MAGNESIUM OXIDE 400 MG TAB PO SCH (21:02)
[2022-03-02] MEDS: ASPIRIN 81 MG ECTAB PO SCH (21:03)
[2022-03-03] MEDS ORDERED: HEPARIN 100 UNIT/ML 5ML FLUSH FLUSH PRN (02:12)
--- NOTE | 2022-03-03 06:04 | Electrocardiogram Report ---
Test Reason : Blood Pressure : / mmHG Vent. Rate : 070 BPM Atrial Rate : 070 BPM P-R Int : 226 ms QRS Dur : 108 ms QT Int : 428 ms P-R-T Axes : -26 -47 105 degrees QTc Int : 462 ms Sinus rhythm with 1st degree A-V block with occasional Premature ventricular complexes and Premature atrial complexes Left axis deviation Septal infarct (cited on or before 01-MAR-2022) Nonspecific ST abnormality Abnormal ECG When compared with ECG of 01-MAR-2022 11:50, Premature ventricular complexes are now Present Questionable change in initial forces of Anterior leads Confirmed by Ian Archibald [id number]) on 03/03/2022 6:03:28 AM Referred By: REFERRED SELF Confirmed By:Ian Archibald
[2022-03-03 06:24] LABS: BUN Creatinine Ratio 18.8 (10-20); Calcium 8.8 mg/dl (8.5-10.1); Creatinine Clr Calc Pharmacy 71.3 ml/min; Est GFR (African American) 71.8 ml/min; Est GFR (Non-African American) 61.9 ml/min; Potassium 3.9 mmol/L (3.5-5.1)
[2022-03-03] MEDS: INSULIN ASPART PER UNIT SC SCH ×2 (08:00→12:06)
[2022-03-03] MEDS: METOPROLOL TARTRATE 25 MG TAB PO SCH (08:01)
[2022-03-03] MEDS: lamoTRIgine 100 MG TAB PO SCH (08:01)
[2022-03-03] MEDS: lamoTRIgine 25 MG TAB PO SCH (08:01)
[2022-03-03] MEDS: LOSARTAN POTASSIUM 50 MG TAB PO SCH (08:01)
[2022-03-03] MEDS: VITAMIN B COMPLEX TAB PO SCH (08:01)
[2022-03-03] MEDS: hydroCHLOROthiazide 25 MG TAB PO SCH (08:02)
[2022-03-03] MEDS: DULoxetine HCL 30 MG CAP PO SCH (08:02)
[2022-03-03] MEDS: CHOLECALCIFEROL 1,000 UNITS 25 MCG TAB PO SCH (08:02)
[2022-03-03] MEDS ORDERED: ISOSORBIDE MONO EXTENDED REL 60 MG TABCR PO SCH (09:00)
--- NOTE | 2022-03-03 14:26 | Discharge Summary ---
Date of Service date of admission - March 01, 2022 date of discharge - March 03, 2022 Admission HPI Per Admitting Provider 71yo male with CAD s/p 4-vessel CABG in [facility] in 1997, T2DM, chronic inflammatory demyelinating polyneuropathy (CIPD), PAD, HTN, and hyperlipidemia who presents from home with his due to 2 episodes of feeling very poorly in the last 24 hours. Patient states that he receives IVIG every 3 weeks in [place] for his CIDP (managed by a neurologist at [facility]) and typically has leg cramps during the infusion. Following the infusion he sometimes has facial flushing, insomnia, and a generalized unwellness. However, last evening he had symptoms very atypical for his IVIG. Specifically, for at least 2 to 2.5 hours in the early hours of this AM, he had diaphoresis, shortness of breath, left shoulder pain, and nausea. The symptoms ultimately improved enough that he did fall asleep for several hours. Upon awakening this am he had another episode of left shoulder pain, dyspnea, and diaphoresis. This 2nd episode lasted for about 3-4 hours. He never had chest pain with either episode. Patient distinctly remembers that in the time period leading up to his CABG he had had left arm pain. The pain in the left shoulder last pm was somewhat sim ilar to the left arm pains he had in the late pre-CABG. He wanted to blame much of the symptoms last night to his IVIG infusion but he readily admits that last night's symptoms were not typical. In addition, he complaints of significant fatigue for weeks to months. Several times during the visit he complained of drenching night-sweats and flushing - present for months. The sweats prevent him from sleeping well. Denies any change in appetite. Denies any weight loss. Denies chronic fevers or rigors. Pt states he had an A-port placed about 6 weeks ago in [place]. Principal Diagnosis Unstable angina Elevated troponin Coronary artery disease Discharge Exam gen - NAD, a/o x 3 neck - no JVD mouth - MMM heart - RRR, s1 s2, 1/6 systolic murmur lungs - slightly decreased BS bases, otherwise CTA b/l abd - soft NT ND BS+ chest - port, left upper chest - clean ext - no edema, pulses 2+ b/l vasc - right femoral region without hematoma or aneurysm Discharge Data Allergies Allergy/AdvReac Type Severity Reaction Status Date / Time adhesive Allergy Intermediate red, Verified 03/01/22 12:43 inflammed No Known Drug Allergies Allergy NKDA Verified 03/01/22 12:43 Consultations [facility] [place] Cardiology - Ian Archibald MD Procedures Performed Operation Date: 03/02/22 13:30 Actual Procedures p Cath, Cors with Grafts (no LV) - Ian Archibald MD s Cineradiography w/Routine Exam - Ian Archibald MD s Ultrasound Vascular Access - Ian Archibald MD Coronary angiography: 1. Left main: Mid LM 50%. 2. Left anterior descending: Ostial LAD 100%. LAD fills via MACIAS. Proximal and mid LAD diffuse severe CAD. Mid LAD 95%. Small Apical LAD 70%. 3. Circumflex: Ostial circumflex 95% proximal circumflex diffuse CAD. Small obtuse marginal branch. Circumflex gives left to right collaterals. 4. Right coronary artery: Dominant vessel. Proximal RCA 100%. RCA receives collaterals from LAD and circumflex distribution. Coronary bypass grafts: 1. MACIAS to LAD: widely patent. 2. Left radial artery to OM 1: Possible ostial stenosis. 5 German JR4 diagnostic catheter felt seated within the ostium and initial imaging would suggest significant ostial stenosis. The catheter then advanced further into the graft without obvious lesion however the arterial waveform became ventricularized. The remainder of the graft was without significant CAD. 3. SVG to OM 2: Patent. OM 2 provided left to right collaterals to the PDA. 4. SVG to PL: Occluded. Echocardiogram: * EF 55-60% * no regional wall motion abnormalities * severe LVH * sclerotic aortic valve without significant stenosis Ordered Studies Chest X-Ray 03/01/22 12:25 XR chest 1V portable HISTORY: 71 years-old Male Chest Pain . Acute atypical chest pain COMPARISON: None TECHNIQUE: Portable AP view of the chest FINDINGS: The cardiac silhouette is enlarged. Mitral annular calcifications. Prior median sternotomy with surgical clips suggestive of CABG. Several of the sternotomy wires are fractured and malaligned. No pneumothorax. Trace pleural effusions with mild left basilar predominant opacities. Pulmonary vascular congestion. Degenerative changes of the shoulders and spine. Left subclavian Qlvgtq-d-Mpja catheter distal tip projects over the expected location of the mid SVC. IMPRESSION: 1. Cardiomegaly with pulmonary vascular congestion. 2. Trace pleural effusions with mild left lung base opacities suggestive of atelectasis versus pneumonitis. 3. Prior median sternotomy. Several sternotomy wires are fractured and malaligned. Chronicity is unknown without comparison. Correlate clinically to exclude sternal dehiscence. ACT 112: Negative or not required by law. The above report was generated using voice recognition software. It may contain grammatical, syntax or spelling errors. Electronically signed by: Julio Lim M.D. 03/01/2022 1:04 PM Chest X-Ray 03/01/22 20:46 XR chest 2V PA/lateral HISTORY: 71 years-old Male L lung opacities on AP projection follow-up study in a patient with left basilar opacities COMPARISON: Chest radiograph of same day at 12:30 PM TECHNIQUE: PA and lateral views of the chest FINDINGS: The cardiac silhouette is enlarged. Mitral annular calcifications. Prior median sternotomy with surgical clips suggestive of CABG. Several of the sternotomy wires are fractured and malaligned. No pneumothorax. Trace pleural effusions with minimal subsegmental left basilar predominant linear opacities. Degenerative changes of the shoulders and spine. Left subclavian Kicqof-f-Cvoe catheter distal tip projects over the expected location of the mid SVC. A battery pack projects over the left chest. IMPRESSION: 1. Cardiomegaly without overt pulmonary edema. 2. Probable trace pleural effusions with subsegmental bibasilar atelectasis. ACT 112: Negative or not required by law. The above report was generated using voice recognition software. It may contain grammatical, syntax or spelling errors. Electronically signed by: Julio Lim M.D. 03/02/2022 6:51 AM Hospital Course (1) Unstable angina: Concern for such vs mild NSTEMI; former is likely. Heparin drip initiated yesterday in light of known CAD, prior CABG, prior +stress test, troponin levels, etc. Echo today with preserved EF and no wall motion abnormalities. s/p heart cath by Dr Avendano today. This showed severe minto CAD along with 1 occluded graft and 3 patent grafts. The occluded graft had multiple collaterals. I spoke with Dr Archibald - medical management advised. Will need more aggressive Rx of lipids - consider tricor or fish oil or both for high trigs/low HDL. Needs better BP control. Cont aspirin. Appreciate Dr Archibald's consultation. (2) Elevated troponin: see #1 above Peak HS trop 550, and now trending down. (3) CAD, multiple vessel: 4-vessel CABG in 1997 - [facility]. had positive/abnl nuclear stress test in 08/2021 as above. s/p heart cath today - severe minto CAD; 3 grafts are patent; 1 patent is occluded but has collaterals medical management advised by cardiology cont asa, beta reese, statin, imdur, nitro SL prn, ARB. see discussion above Re: lipids. increased beta reese this am. Dr Archibald recommending higher dose of imdur. (4) Positive blood culture: blood cultures were drawn yesterday evening due to several weeks/months of severe night-sweats, flushing, etc. 1 set of cultures turned positive this afternoon. until we have more information will cover with daptomycin 6mg/kg IV now. (deferring on vancomycin since he just had a large contrast load for his heart cath). hold statin due to daptomycin use. (5) Night sweats: several months in duration. no weight loss. crp normal; sed rate minimally elevated. repeat cxr without left-sided infiltrates. blood cultures - 1 set turned positive this afternoon. uncertain if pathogenic or contaminant but will cover such with IV daptomycin. (6) Insomnia: trial of trazodone 25mg HS (7) CIDP (chronic inflammatory demyelinating polyneuropathy): follows with Neurology at [facility] in [place]. IVIG q3 weeks for such. IVIG has been utilized for about 2 years. last infusion - 02/28/22. (8) Hyperlipidemia: very high trigs very low HDL consider tricor, prescription fish oil, etc (9) Hypertension: poorly controlled. increased metoprolol to 25mg BID. increase imdur to 60mg daily. cont ARB, HCTZ. (10) Obstructive sleep apnea: need to inquire if using CPAP or BIPAP at home. if untreated this is likely contributing to chronic insomnia. (11) PAD (peripheral artery disease): arterial duplex studies with mild-moderate PAD of legs but normal ABIs. night-time leg cramps, however, unlikely to be from PAD. he denies claudication of legs with activity. (12) Seizure-like activity: history of focal & generalized seizures in the past. cont lamictal. follows with neurology in [place]. patient clarified that lamictal dose is 250mg BID. (13) Type 2 diabetes mellitus: Hba1c 7.1%. BSGs ac/hs. Novolog sliding scale. add basal insulin as needed. hold metformin. (14) Abnormal CXR: ?left sided infiltrates on pCXR 03/01 repeat 2-view cxr does not show the left-sided infiltrates. Discharge Plan Discharge Items Patient Disposition: Home - Self-Care Reason For Visit: UNSTABLE ANGINA, +TROPONIN Discharge Diagnosis: 1. unstable angina - heart catheterization by Dr Ian Archibald - severe coronary disease seen; 1 bypass graft out of 4 is blocked/occluded. 2. chronic night-sweats. 3. hypertension. 4. insomnia. 5. CIDP on IVIG infusions. 6. positive blood culture - likely contaminant. Activity: Per Instructions section Non-emergency contact: Primary Care Provider and Jersey Knitter Call non-emergency contact if: you have any medication questions and your symptoms worsen Follow-up/Referrals: Ian Archibald MD [Physician] - (2 weeks) Arsh Gupta [Primary Care Provider] - (Follow up appointment scheduled with BLAIR Palumbo.) Britney Jesus NP [Outside Practitioners] - 03/09/22 11:15 am (Please follow up with BLAIR Palumbo on Monday03/09/22 at 11:15 am. Please arrive to the office at 11:00 am for your appointment. If you are unable to keep this appointment, please call the office to reschedule at [phone].) Diet: Carb Consistent or DM2 and Heart Healthy Ambulatory Orders: Basic Metabolic Panel (Routine) Timeframe: [id number] Location: Determined by Patient Ordered By: Vipul Morocho Attending Provider Instructions: ACTIVITY RECOMMENDATIONS following your femoral heart catheterization: It is common to feel weak and fatigue for a few days. * Do not drive or operate any motorized equipment for the next three days. * Limit stair usage (2 or 3 trips a day only) for the next three days. * Do not lift anything heavier than 10 pounds for the next three days. * Do not engage in vigorous exercise or any sports for the next five days. * You may shower the day after your procedure, but do not immerse the area for three days. Cleanse the site gently with soap and water. * Do not strain during bowel movements for the next 3 days. * Do not push or pull heavy objects for the next five days. SPECIAL CARE INSTRUCTIONS: * You may replace the pressure dressing or band-aid the morning after the procedure. * After your procedure, it is normal to have a small bruise or small lump at the site. Examine your site daily for any change in the bruise or lump, redness, swelling, drainage or numbness. Notify your doctor if any change. BLEEDING: * If there is a small amount of bleeding at the site, lie down and apply firm pressure with a clean cloth for ten minutes. When the bleeding stops, lie quietly keeping the procedure limb straight for six hours. Notify your doctor as soon as possible. * If the bleeding does not stop after ten minutes or if there is a large amount of bleeding or spurting, call 911 immediately. Continue to lie down and hold firm pressure until help arrives. SKIN IRRITATION: * You may experience some redness and/or swelling in the area where radiation was administered. If any skin irritation occurs, please contact your family physician. FOLLOW UP VISIT: Keep any scheduled doctor appointments. Addtl Mouse Breeder Provider Instructions: Mr Willams, You were admitted to the hospital after developing 2 episodes of shortness of breath, left shoulder discomfort, and several other symptoms. Upon arrival to [facility] the blood work for your heart ("troponin") was mildly elevated. This blood work can be abnormal in the setting of heart attacks, unstable angina, severely elevated blood pressure, and other conditions. We were concerned, given your heart history, that your presenting symptoms were indeed from your heart. After admission your symptoms did improve/resolve. Dr Archibald performed a heart catheterization on 03/02/22. This showed that your bypass grafts from 1997 are open in 3 of the grafts but 1 is blocked/occluded. Additionally, your coronary arteries are severely diseased with plaque build-up. No stents were placed. Dr Archibald is recommended medical management. Additionally, because of the night-sweats and other symptoms you have been having for some time, we performed blood cultures to look for infection of the blood. 1 out of 4 bottles showed bacterial growth. Typically this is contamination (false reading/false positive); in rare cases 1 positive culture can indicate a true infection. We repeated your blood cultures on 03/03/22 just before discharge and we will follow these carefully. Recommendations - 1. nitroglycerin tablets - keep the emergency bottle with you at all times. If you have any symptoms of a heart attack (chest pain, shortness of breath, left arm pain, jaw pain, nausea, vomiting, etc) please take the tablets by placing under the tongue. If you ever have to take these tablets please seek medical attention. 2. heart medications - * increase your metoprolol to 25mg twice daily, first dose TONIGHT * increase your isosorbide mononitrate to 60mg once daily, first dose TOMORROW 3. metformin for diabetes - HOLD your metformin at this time. Please have a blood draw at [facility] tomorrow morning to recheck your kidney function (bring the lab slip with you). We will let you know how the lab looks and if normal you can resume metformin tomorrow evening. We will call you tomorrow with instructions. 4. insomnia - * trazodone 25mg at bedtime (1/2 tablet) as needed * if taking the 25mg for a few days isn't helpful for your sleep you can ultimately increase the dose to 50mg at bedtime in the future * rare side effect of priapism (prolonged erection) with this medication but it is rare 5. night-sweats - please speak to Dr Gupta about this; you may need additional testing 6. high triglycerides / low HDL -- please speak to Dr Gupta about either taking prescription fish oil OR tricor medication to help with these numbers 7. please stay in touch with your neurologist in [place] about your next IVIG infusion Follow-up - see separate section Return to [facility] if - * you have fevers over 100 degrees * you have any concerns about your right groin from the recent heart cath eterization * you have chest pains, shortness of breath, or you have to take the [id number] nitroglycerin tablets * any other concerns It was our pleasure to care for you at [facility]! Have a blessed Dr Callum Herr Pending Studies at Discharge: Yes Studies:: blood cultures Stand-Alone Forms: My [facility], Smoking Cessation Medications and DC Order Prescriptions: New trazodone 50 mg Tablet 25 mg PO HS Qty: 30 RF: 0 Continued atorvastatin 80 mg tablet 80 mg PO QPM Qty: 90 RF: 3 losartan 100 mg tablet 100 mg PO DAILY RF: 0 cholecalciferol (vitamin D3) 125 mcg (5,000 unit) capsule 125 mcg PO DAILY RF: 0 aspirin 81 mg tablet 81 mg PO QPM RF: 0 albuterol sulfate 90 mcg/actuation HFA aerosol inhaler 1 - 2 puff inhalation QID PRN (Reason: Shortness Of Breath Or Wheezing) RF: 0 duloxetine 30 mg capsule,delayed release(DR/EC) 30 mg PO DAILY RF: 0 magnesium oxide 400 mg magnesium tablet 400 mg PO QPM RF: 0 lamotrigine 200 mg tablet 200 mg PO BID RF: 0 vitamin B complex Tablet 1 tab PO DAILY RF: 0 hydrochlorothiazide 25 mg tablet 12.5 mg PO DAILY RF: 0 Folbic 2.5-25-2 mg tablet 1 tab PO DAILY RF: 0 Ivig 1 dose IV .Q3WKS RF: 0 Potassium Otc 1 tab PO DAILY RF: 0 nitroglycerin 0.4 mg tablet, sublingual 0.4 mg SL Q5M PRN (Reason: chest pain) Qty: 1 RF: 0 Changed lamotrigine 25 mg tablet 50 mg PO BID Qty: 0 RF: 0 isosorbide mononitrate 60 mg tablet extended release 24 hr 60 mg PO DAILY Qty: 30 RF: 2 metoprolol tartrate 25 mg tablet 25 mg PO BID Qty: 90 RF: 3 Discontinued metformin 500 mg tablet extended release 24 hr 500 mg PO BID Qty: 60 RF: 0 Discharge Orders: Discharge Order (Routine); Ordered 03/03/22 Ordered By: Vipul Leal/Other Patient Handouts: Managing Type 2 Diabetes Admission Data Admit Date/Time: 03/01/22 18:25 Attending Provider: Vipul Nolen Admit Provider: Vipul Nolen Primary Care Provider: Arsh Gupta Other Providers: Ian Archibald Other Interventions: Discharge Summary Assessment (RN) Last Done: 03/03/22 15:00 Coding Diagnoses Unstable angina I20.0 Elevated troponin R77.8 CAD, multiple vessel I25.10 Positive blood culture R78.81 Night sweats R61 Insomnia G47.00 CIDP (chronic inflammatory demyelinating polyneuropathy) G61.81 Hyperlipidemia E78.5 Hypertension I10 Obstructive sleep apnea G47.33 PAD (peripheral artery disease) I73.9 Seizure-like activity R56.9 Type 2 diabetes mellitus E11.9 Abnormal CXR R93.89
--- NOTE | 2022-03-04 06:23 | Electrocardiogram Report ---
Test Reason : Blood Pressure : / mmHG Vent. Rate : 074 BPM Atrial Rate : 074 BPM P-R Int : 234 ms QRS Dur : 110 ms QT Int : 436 ms P-R-T Axes : -23 -46 087 degrees QTc Int : 483 ms Sinus rhythm with 1st degree A-V block with Premature atrial complexes Left axis deviation Septal infarct (cited on or before 01-MAR-2022) Nonspecific T wave abnormality Abnormal ECG When compared with ECG of 02-MAR-2022 04:17, Premature ventricular complexes are no longer Present Confirmed by Ian Archibald ([id number]) on 03/04/2022 6:22:51 AM Referred By: REFERRED SELF Confirmed By:Ian Archibald
== END 2022-03-03 16:57 | disposition home or self-care (01) | DRG 287 ==
LOC: ED 11:41 → 2E 18:25
PROC: CLB.CCG (2022-03-02 13:30)